=== PATIENT | male | born 1945 | race Caucasian/White ===

== ENCOUNTER 2020-10-16 09:41 | Outpatient (REF) | payer MEDICARE, SELFPAY ==
[2020-10-16 10:23] LABS: MANUAL DIFF FLAG NO
[2020-10-16 10:49] LABS: Basophils Percent Auto 0.5 % (0-2); Eosinophils Absolute Auto 0.1 X10*3/uL (0.0-0.4); Eosinophils Percent Auto 1.7 % (0-4); Hematocrit 27.8 % (42-52); Hemoglobin 9.6 g/dl (14.0-18.0); Imm Gran Abs Auto 0.06 X10*3/uL (0.00-0.03); Imm Gran Pct Auto 0.7 % (0.0-0.4); Lymphocytes Absolute Auto 1.5 X10*3/uL (1.2-4.9); Lymphocytes Percent Auto 18.7 % (20-40); Mean Corpuscular Hemoglobin 32.2 pg (27.0-33.0); Mean Corpuscular Volume 93.3 fL (80-98); Mean Platelet Volume 11.3 fL (9.4-12.4); Monocytes Absolute Auto 0.8 X10*3/uL (0.1-1.2); Neutrophils Absolute Auto 5.6 X10*3/uL (2.0-8.3); Neutrophils Percent Auto 68.4 % (45-73); Platelet Count 180 X10*3/uL (160-400); Red Blood Count 2.98 X10*6/uL (4.60-5.80); Red Cell Distribution Width 13.1 % (11.0-16.0); White Blood Count 8.2 X10*3/uL (4.8-10.8)
[2020-10-16 10:50] LABS: Glucose Urine UA NEG (NEG); Leukocyte Esterase Urine NEG (NEG); Nitrite Urine NEG (NEG); PH 5.5 (5.0-8.0); Specific Gravity - Urine >= 1.030 (1.005-1.025); Urine Blood TRACE (NEG); Urine Ketones NEG (NEG); Urine Protein 2+ MG/DL (NEG-TRACE)
[2020-10-16 10:51] LABS: Mean Corpuscular HGB Conc 34.5 g/dl (31.0-36.0)
[2020-10-16 10:53] LABS: Appearance Urine CLEAR; Color Urine YELLOW
[2020-10-16 11:04] LABS: Bacteria Urine TRACE /LPF; Granular Casts Urine 0-2 /LPF; Squamous Epithelial Cell Urine TRACE /LPF; WBC Urine 0-2 /HPF (0-4)
[2020-10-16 11:26] LABS: Alanine Aminotransferase 7 U/L (0-40); Alkaline Phosphatase 73 U/L (39-117); Anion Gap 14 (12-20); Aspartate Amino Transferase 10 U/L (5-37); Blood Urea Nitrogen 37 mg/dL (9-16); Calcium 8.5 mg/dL (8.4-10.2); Carbon Dioxide 22 mmol/L (22-29); Chloride 107 mmol/L (96-108); Estimated Glomerular Filt Rate 24; Glucose Fasting 151 mg/dL (60-99); Potassium 4.3 mmol/l (3.3-5.1); Sodium 139 mmol/L (135-145); Total Protein 6.7 g/dL (6.5-8.0)
[2020-10-16 11:35] LABS: Creatinine Urine 126.45 mg/dL
[2020-10-16 11:38] LABS: Bilirubin Total 0.3 mg/dL (0.0-1.0)
== END 2020-10-16 09:42 | disposition home or self-care (01) ==
LOC: HO.WFDLDS 09:41
PROVIDERS: PCP Family Medicine; Visit Provider Family Medicine
DX: Z00.00 Encounter for general adult medical examination without abnormal findings (principal); I12.9 Hypertensive chronic kidney disease with stage 1 through stage 4 chronic kidney disease, or unspecified chronic kidney disease; N18.9 Chronic kidney disease, unspecified
CPT/HCPCS: 36415; 80053; 81001; 82043; 85025

== ENCOUNTER 2021-02-09 13:03 | Outpatient (REF) | payer MEDICARE, SELFPAY ==
--- NOTE | ~2021-02-09 | XR_ITS ---
EXAMINATION: XR HAND, LEFT XR HAND, RIGHT CLINICAL INFORMATION: Pain COMPARISON: None TECHNIQUE: 3 views of each hand FINDINGS: Left hand: There is no fracture or dislocation. Alignment is anatomic. Joint spaces are maintained. Prominent cyst formation along the proximal carpal row, particularly in the scaphoid. Soft tissue calcification adjacent to the fourth digit distal interphalangeal joint. No osseous erosions. Small osteophytes of the first carpometacarpal joint. Right hand: No fracture or dislocation. Alignment is anatomic. Mild joint space narrowing at the fifth digit proximal interphalangeal joint. Small osteophytes of the first carpometacarpal joint. Soft tissue calcification at the radial aspect of the wrist. Diffuse soft tissue swelling noted. Osteophytes at the first digit interphalangeal joint with soft tissue calcification. No osseous erosions. XR/XR hand RT 2V IMPRESSION: Mild arthritic changes as detailed above. Areas of soft tissue swelling.
--- NOTE | ~2021-02-09 | XR_ITS ---
EXAMINATION: XR SHOULDER, LEFT XR SHOULDER, RIGHT CLINICAL INFORMATION: Limited mobility. Pain. COMPARISON: None TECHNIQUE: 4 views of each shoulder. FINDINGS: Left shoulder: There is no fracture or dislocation. The glenohumeral joint is well aligned. The joint space is maintained with small osteophytes present. The acromioclavicular joint is intact with mild hypertrophic degenerative change. The visualized lung is clear. The visualized ribs are intact. Right shoulder: No fracture or dislocation. The glenohumeral joint is well aligned. The joint space is maintained with small osteophytes present. The acromioclavicular joint is intact with mild hypertrophic degenerative change. Soft tissue calcification adjacent to the humeral greater tuberosity. The visualized lung is clear. The visualized ribs are intact. XR/XR shoulder LT min 2V IMPRESSION: Mild degenerative changes of both shoulders. Calcification in the soft tissues adjacent to the right humeral greater tuberosity can be seen with calcific tendinosis of the rotator cuff.
--- NOTE | ~2021-02-09 | XR_ITS ---
EXAMINATION: XR CERVICAL SPINE CLINICAL INFORMATION: Pain COMPARISON: None TECHNIQUE: 3 views of the cervical spine were obtained. FINDINGS: No fracture or subluxation. Slight retrolisthesis of C4 on C5 appears degenerative. Vertebral body height and alignment is otherwise maintained. Disc space narrowing at C4-C5 and C5-C6 with endplate osteophytes. The atlantoaxial joint is well aligned. The dens appears intact. The prevertebral soft tissues are unremarkable. The lung apices are clear. XR/XR cervical spine 2V IMPRESSION: Moderate degenerative change of the mid cervical spine.
--- NOTE | ~2021-02-09 | XR_ITS ---
EXAMINATION: XR SHOULDER, LEFT XR SHOULDER, RIGHT CLINICAL INFORMATION: Limited mobility. Pain. COMPARISON: None TECHNIQUE: 4 views of each shoulder. FINDINGS: Left shoulder: There is no fracture or dislocation. The glenohumeral joint is well aligned. The joint space is maintained with small osteophytes present. The acromioclavicular joint is intact with mild hypertrophic degenerative change. The visualized lung is clear. The visualized ribs are intact. Right shoulder: No fracture or dislocation. The glenohumeral joint is well aligned. The joint space is maintained with small osteophytes present. The acromioclavicular joint is intact with mild hypertrophic degenerative change. Soft tissue calcification adjacent to the humeral greater tuberosity. The visualized lung is clear. The visualized ribs are intact. XR/XR shoulder RT min 2V IMPRESSION: Mild degenerative changes of both shoulders. Calcification in the soft tissues adjacent to the right humeral greater tuberosity can be seen with calcific tendinosis of the rotator cuff.
--- NOTE | ~2021-02-09 | XR_ITS ---
EXAMINATION: XR HAND, LEFT XR HAND, RIGHT CLINICAL INFORMATION: Pain COMPARISON: None TECHNIQUE: 3 views of each hand FINDINGS: Left hand: There is no fracture or dislocation. Alignment is anatomic. Joint spaces are maintained. Prominent cyst formation along the proximal carpal row, particularly in the scaphoid. Soft tissue calcification adjacent to the fourth digit distal interphalangeal joint. No osseous erosions. Small osteophytes of the first carpometacarpal joint. Right hand: No fracture or dislocation. Alignment is anatomic. Mild joint space narrowing at the fifth digit proximal interphalangeal joint. Small osteophytes of the first carpometacarpal joint. Soft tissue calcification at the radial aspect of the wrist. Diffuse soft tissue swelling noted. Osteophytes at the first digit interphalangeal joint with soft tissue calcification. No osseous erosions. XR/XR hand LT 2V IMPRESSION: Mild arthritic changes as detailed above. Areas of soft tissue swelling.
[2021-02-09 14:11] LABS: MANUAL DIFF FLAG NO
[2021-02-09 14:36] LABS: Alanine Aminotransferase 12 U/L (0-40); Alkaline Phosphatase 60 U/L (39-117); Anion Gap 14 (12-20); Aspartate Amino Transferase 13 U/L (5-37); Bilirubin Total 0.4 mg/dL (0.0-1.0); Blood Urea Nitrogen 52 mg/dL (9-16); Calcium 8.6 mg/dL (8.4-10.2); Carbon Dioxide 25 mmol/L (22-29); Chloride 106 mmol/L (96-108); Estimated Glomerular Filt Rate 20; Glucose Random 167 mg/dL (60-115); Sodium 140 mmol/L (135-145); Total Protein 6.5 g/dL (6.5-8.0)
[2021-02-09 14:39] LABS: Basophils Percent Auto 0.5 % (0-2); Eosinophils Absolute Auto 0.1 X10*3/uL (0.0-0.4); Hematocrit 26.7 % (42-52); Hemoglobin 8.9 g/dl (14.0-18.0); Imm Gran Abs Auto 0.04 X10*3/uL (0.00-0.03); Imm Gran Pct Auto 0.5 % (0.0-0.4); Lymphocytes Absolute Auto 1.2 X10*3/uL (1.2-4.9); Lymphocytes Percent Auto 14.4 % (20-40); Mean Corpuscular HGB Conc 33.3 g/dl (31.0-36.0); Mean Corpuscular Hemoglobin 31.7 pg (27.0-33.0); Mean Platelet Volume 10.9 fL (9.4-12.4); Monocytes Absolute Auto 0.7 X10*3/uL (0.1-1.2); Monocytes Percent Auto 8.4 % (2-11); Neutrophils Absolute Auto 6.1 X10*3/uL (2.0-8.3); Neutrophils Percent Auto 75.2 % (45-73); Platelet Count 159 X10*3/uL (160-400); Red Blood Count 2.81 X10*6/uL (4.60-5.80); Red Cell Distribution Width 13.6 % (11.0-16.0); White Blood Count 8.1 X10*3/uL (4.8-10.8)
[2021-02-09 14:45] LABS: Rheumatoid Factor < 15.0 IU/mL (<15.0)
[2021-02-09 15:04] LABS: Erythrocyte Sedimentation Rate 66 MM/HR (0-15)
[2021-02-10 15:27] LABS: CRP High Sensitivity 8.6 mg/L
[2021-02-12 13:01] LABS: Anti Nuclear Antibody Screen NEGATIVE (NEGATIVE)
[2021-02-12 16:36] LABS: Cyclic Citrullinated Peptide <16 UNITS
== END 2021-02-09 13:04 | disposition home or self-care (01) ==
LOC: HO.LAB 13:03
PROVIDERS: PCP Family Medicine; Visit Provider Family Medicine
DX: N18.9 Chronic kidney disease, unspecified (principal); D64.9 Anemia, unspecified; M25.50 Pain in unspecified joint
CPT/HCPCS: 36415; 72040; 73030; 73120; 80053; 85025; 85652; 86038; 86039; 86141; 86200; 86431

== ENCOUNTER 2021-03-18 09:37 | Outpatient (REF) | payer MEDICARE, SELFPAY ==
[2021-03-18 11:20] LABS: Anion Gap 13 (12-20); Blood Urea Nitrogen 50 mg/dL (9-16); Carbon Dioxide 23 mmol/L (22-29); Chloride 110 mmol/L (96-108); Estimated Glomerular Filt Rate 23; Glucose Random 80 mg/dL (60-115); Potassium 4.8 mmol/L (3.3-5.1); Sodium 141 mmol/L (135-145)
[2021-03-18 11:43] LABS: Prostate Specific Antigen Scr 0.51 ng/mL (<0.05-4.0)
== END 2021-03-18 09:38 | disposition home or self-care (01) ==
LOC: HO.WFDLDS 09:37
PROVIDERS: Visit Provider Family Medicine
DX: Z00.00 Encounter for general adult medical examination without abnormal findings (principal); Z12.5 Encounter for screening for malignant neoplasm of prostate
CPT/HCPCS: 36415; 80048; 84153

== ENCOUNTER 2021-04-11 07:49 | Outpatient (REF) | payer MEDICARE, SELFPAY ==
--- NOTE | ~2021-04-11 | XR_ITS ---
EXAMINATION: XR CERVICAL SPINE, THORACIC SPINE, LUMBAR SPINE AND BILATERAL HIPS CLINICAL INFORMATION: Pain. COMPARISON: None. TECHNIQUE: Cervical spine 3 views. Dorsal spine 3 views. Lumbar spine 3 views. 2 views each hip. FINDINGS: Cervical Spine: There is mild straightening of the cervical lordosis. There is loss of C3-C4, C4-C5, C5-C6 disc heights with ventral spondylosis at the C4-C5 and C5-C6 disc level. No visible acute fracture or subluxation seen. The prevertebral soft tissues are normal. Dorsal Spine: There is normal thoracic kyphosis. There is mild dextroscoliosis of dorsal spine. The vertebral heights, alignment appears normal. There is minimal loss of disc height T5-T6, T6-T7, T7-T8, T8-T9 and T9-T10 disc levels with mild ventral spondylosis. There is no visible acute fracture, lytic or sclerotic process. The paravertebral soft tissues are normal. Lumbar Spine: There is maintained lumbar lordosis. The vertebral heights and alignment are normal. Loss of L4-L5, L3-L4 and L1-L2 disc heights with moderate ventral spondylosis. No acute fracture or lytic process seen. The paravertebral soft tissues are normal. No lytic or sclerotic process seen. Right Hip: The right hip joint space is maintained normal. There is no visible fracture, dislocation or subluxation. The soft tissues are normal. Left Hip: There is no visible acute fracture, dislocation or subluxation. No bony erosive changes. The joint space is maintained normal. The soft tissues are normal. XR/XR thoracic spine 2V IMPRESSION: Degenerative disc changes C3-C4, C4-C5 and C5-C6 disc levels with ventral spondylosis. No visible acute fracture or dislocation. Mild dextroscoliosis dorsal spine with degenerative disc changes as described above. There is no acute fracture. Mild degenerative disc changes L1-L2, L2-for L4-L5 disc levels with ventral spondylosis. No acute fracture or lytic process seen. Unremarkable bilateral hip exam.
--- NOTE | ~2021-04-11 | XR_ITS ---
EXAMINATION: XR CERVICAL SPINE, THORACIC SPINE, LUMBAR SPINE AND BILATERAL HIPS CLINICAL INFORMATION: Pain. COMPARISON: None. TECHNIQUE: Cervical spine 3 views. Dorsal spine 3 views. Lumbar spine 3 views. 2 views each hip. FINDINGS: Cervical Spine: There is mild straightening of the cervical lordosis. There is loss of C3-C4, C4-C5, C5-C6 disc heights with ventral spondylosis at the C4-C5 and C5-C6 disc level. No visible acute fracture or subluxation seen. The prevertebral soft tissues are normal. Dorsal Spine: There is normal thoracic kyphosis. There is mild dextroscoliosis of dorsal spine. The vertebral heights, alignment appears normal. There is minimal loss of disc height T5-T6, T6-T7, T7-T8, T8-T9 and T9-T10 disc levels with mild ventral spondylosis. There is no visible acute fracture, lytic or sclerotic process. The paravertebral soft tissues are normal. Lumbar Spine: There is maintained lumbar lordosis. The vertebral heights and alignment are normal. Loss of L4-L5, L3-L4 and L1-L2 disc heights with moderate ventral spondylosis. No acute fracture or lytic process seen. The paravertebral soft tissues are normal. No lytic or sclerotic process seen. Right Hip: The right hip joint space is maintained normal. There is no visible fracture, dislocation or subluxation. The soft tissues are normal. Left Hip: There is no visible acute fracture, dislocation or subluxation. No bony erosive changes. The joint space is maintained normal. The soft tissues are normal. XR/XR hip RT 1V IMPRESSION: Degenerative disc changes C3-C4, C4-C5 and C5-C6 disc levels with ventral spondylosis. No visible acute fracture or dislocation. Mild dextroscoliosis dorsal spine with degenerative disc changes as described above. There is no acute fracture. Mild degenerative disc changes L1-L2, L2-for L4-L5 disc levels with ventral spondylosis. No acute fracture or lytic process seen. Unremarkable bilateral hip exam.
--- NOTE | ~2021-04-11 | XR_ITS ---
EXAMINATION: XR CERVICAL SPINE, THORACIC SPINE, LUMBAR SPINE AND BILATERAL HIPS CLINICAL INFORMATION: Pain. COMPARISON: None. TECHNIQUE: Cervical spine 3 views. Dorsal spine 3 views. Lumbar spine 3 views. 2 views each hip. FINDINGS: Cervical Spine: There is mild straightening of the cervical lordosis. There is loss of C3-C4, C4-C5, C5-C6 disc heights with ventral spondylosis at the C4-C5 and C5-C6 disc level. No visible acute fracture or subluxation seen. The prevertebral soft tissues are normal. Dorsal Spine: There is normal thoracic kyphosis. There is mild dextroscoliosis of dorsal spine. The vertebral heights, alignment appears normal. There is minimal loss of disc height T5-T6, T6-T7, T7-T8, T8-T9 and T9-T10 disc levels with mild ventral spondylosis. There is no visible acute fracture, lytic or sclerotic process. The paravertebral soft tissues are normal. Lumbar Spine: There is maintained lumbar lordosis. The vertebral heights and alignment are normal. Loss of L4-L5, L3-L4 and L1-L2 disc heights with moderate ventral spondylosis. No acute fracture or lytic process seen. The paravertebral soft tissues are normal. No lytic or sclerotic process seen. Right Hip: The right hip joint space is maintained normal. There is no visible fracture, dislocation or subluxation. The soft tissues are normal. Left Hip: There is no visible acute fracture, dislocation or subluxation. No bony erosive changes. The joint space is maintained normal. The soft tissues are normal. XR/XR lumbar spine 2-3V IMPRESSION: Degenerative disc changes C3-C4, C4-C5 and C5-C6 disc levels with ventral spondylosis. No visible acute fracture or dislocation. Mild dextroscoliosis dorsal spine with degenerative disc changes as described above. There is no acute fracture. Mild degenerative disc changes L1-L2, L2-for L4-L5 disc levels with ventral spondylosis. No acute fracture or lytic process seen. Unremarkable bilateral hip exam.
== END 2021-04-11 07:50 | disposition home or self-care (01) ==
LOC: HO.XRAY 07:49
PROVIDERS: PCP Family Medicine; Visit Provider Family Medicine
DX: M25.552 Pain in left hip (principal); M25.561 Pain in right knee; M54.2 Cervicalgia; M54.6 Pain in thoracic spine; M54.5 Low back pain
CPT/HCPCS: 72040; 72070; 72100; 73501

== ENCOUNTER 2021-05-12 09:28 | Outpatient (REF) | payer MEDICARE, SELFPAY ==
[2021-05-12 11:32] LABS: MANUAL DIFF FLAG NO
[2021-05-12 11:56] LABS: Anion Gap 14 (12-20); Blood Urea Nitrogen 39 mg/dL (9-16); C Reactive Protein 1.93 mg/dL (< or = 0.50); Calcium 9.1 mg/dL (8.4-10.2); Carbon Dioxide 22 mmol/L (22-29); Chloride 109 mmol/L (96-108); Cholesterol 117 mg/dL; Estimated Glomerular Filt Rate 20; Glucose Random 130 mg/dL (60-115); HDL Cholesterol 26 mg/dL; Iron 58 mcg/dL (45-160); LDL Cholesterol Calculated 64 mg/dl; Percent Iron Saturation 28 % (15-50); Potassium 4.6 mmol/L (3.3-5.1); Sodium 140 mmol/L (135-145); Total Iron Binding Capacity 210 mcg/dL (228-428); Triglycerides 136 mg/dL; Unsaturated Iron Binding 152 ug/dL
[2021-05-12 12:07] LABS: Glucose Urine UA NEG (NEG); Leukocyte Esterase Urine NEG (NEG); Nitrite Urine NEG (NEG); PH 5.5 (5.0-8.0); Specific Gravity - Urine 1.025 (1.005-1.025); Urine Blood NEG (NEG); Urine Ketones NEG (NEG); Urine Protein 2+ MG/DL (NEG-TRACE)
[2021-05-12 12:10] LABS: Appearance Urine CLEAR; Color Urine YELLOW
[2021-05-12 12:26] LABS: Basophils Percent Auto 0.4 % (0-2); Eosinophils Absolute Auto 0.1 X10*3/uL (0.0-0.4); Eosinophils Percent Auto 1.3 % (0-4); Hematocrit 26.5 % (42-52); Hemoglobin 8.6 g/dl (14.0-18.0); Imm Gran Abs Auto 0.04 X10*3/uL (0.00-0.03); Imm Gran Pct Auto 0.5 % (0.0-0.4); Immature Retic Fraction 7.9 % (2.3-13.4); Lymphocytes Absolute Auto 1.1 X10*3/uL (1.2-4.9); Lymphocytes Percent Auto 13.9 % (20-40); Mean Corpuscular HGB Conc 32.5 g/dl (31.0-36.0); Mean Corpuscular Hemoglobin 30.9 pg (27.0-33.0); Mean Corpuscular Volume 95.3 fL (80-98); Mean Platelet Volume 10.9 fL (9.4-12.4); Monocytes Absolute Auto 0.7 X10*3/uL (0.1-1.2); Monocytes Percent Auto 9.8 % (2-11); Neutrophils Absolute Auto 5.6 X10*3/uL (2.0-8.3); Neutrophils Percent Auto 74.1 % (45-73); Platelet Count 169 X10*3/uL (160-400); Red Blood Count 2.78 X10*6/uL (4.60-5.80); Red Cell Distribution Width 12.9 % (11.0-16.0); Retic HGB Equivalent 33.7 pg (30.0-35.0); Reticulocyte Percent 1.5 % (0.5-1.8); Reticulocytes Absolute 0.042 X10*6/uL (0.026-0.095); White Blood Count 7.5 X10*3/uL (4.8-10.8)
[2021-05-12 12:41] LABS: Folate 9.7 ng/mL (> or = 4.0); Vitamin B12 400 pg/mL (200-900)
[2021-05-12 12:49] LABS: Ferritin 224 ng/mL (20-250)
[2021-05-12 13:05] LABS: Bacteria Urine 1+ /LPF; RBC Urine 0-2 /HPF (0); Squamous Epithelial Cell Urine TRACE /LPF; WBC Urine 0-2 /HPF (0-4)
[2021-05-12 13:10] LABS: Erythrocyte Sedimentation Rate 75 MM/HR (0-15)
[2021-05-13 17:01] LABS: Lyme Abs Screen <0.90 index
[2021-05-15 08:47] LABS: PEU-Protein Creat Ratio Rand 0.647 (0.022-0.128); PEU-Rand. Prot/Creat Ratio 647 mg/g creat (22-128); PEU-Random Ur. Gamma Globulin 10 %; PEU-Random Urine A1 Globulin 1 %; PEU-Random Urine A2 Globulin 3 %; PEU-Random Urine Albumin 81 %; PEU-Random Urine Beta Globulin 6 %; PEU-Random Urine Creatinine 156 mg/dL (20-320); PEU-Random Urine Protein 101 mg/dL (5-25)
[2021-05-15 14:27] LABS: Prot Elec - Albumin 3.9 g/dL (3.8-4.8); Prot Elec - Alpha1 0.4 g/dL (0.2-0.3); Prot Elec - Alpha2 0.6 g/dL (0.5-0.9); Prot Elec - Beta 1 0.4 g/dL (0.4-0.6); Prot Elec - Beta 2 0.3 g/dL (0.2-0.5); Prot Elec - Gamma 0.8 g/dL (0.8-1.7); Prot Elec - Total Protein 6.3 g/dL (6.1-8.1)
[2021-05-15 15:17] LABS: IgA 171 mg/dL (70-320); IgG 768 mg/dL (600-1540); IgM 331 mg/dL (50-300)
[2021-05-16 09:54] LABS: PES-Abn Protein Band 2 TNPT
== END 2021-05-12 09:29 | disposition home or self-care (01) ==
LOC: HO.LAB 09:28
PROVIDERS: PCP Family Medicine; Visit Provider Student in an Organized Health Care Education/Training Program
DX: M35.3 Polymyalgia rheumatica (principal); R79.82 Elevated C-reactive protein (CRP); R70.0 Elevated erythrocyte sedimentation rate; Z00.00 Encounter for general adult medical examination without abnormal findings; N18.9 Chronic kidney disease, unspecified; D64.9 Anemia, unspecified; Z86.39 Personal history of other endocrine, nutritional and metabolic disease
CPT/HCPCS: 36415; 80048; 80061; 81001; 81003; 82570; 82607; 82728; 82746; 82784; 83540; 84155; 84156; 84165; 84166; 85025; 85045; 85652; 86140; 86334; 86335; 86617; 86618; 99202

== ENCOUNTER 2021-06-02 12:45 | Outpatient (REF) | payer MEDICARE, SELFPAY ==
[2021-06-02 14:06] LABS: Glucose Urine UA NEG (NEG); Leukocyte Esterase Urine NEG (NEG); Nitrite Urine NEG (NEG); Urine Blood NEG (NEG); Urine Ketones NEG (NEG); Urine Protein 2+ MG/DL (NEG-TRACE)
[2021-06-02 14:11] LABS: Appearance Urine CLEAR; Color Urine YELLOW
[2021-06-02 14:22] LABS: C Reactive Protein 0.18 mg/dL (< or = 0.50)
[2021-06-02 14:32] LABS: RBC Urine 0 /HPF (0); Squamous Epithelial Cell Urine TRACE /LPF; WBC Urine 0-2 /HPF (0-4)
[2021-06-02 15:13] LABS: Erythrocyte Sedimentation Rate 36 MM/HR (0-15)
== END 2021-06-02 12:46 | disposition home or self-care (01) ==
LOC: HO.LAB 12:45
PROVIDERS: PCP Family Medicine; Visit Provider Student in an Organized Health Care Education/Training Program
DX: M35.3 Polymyalgia rheumatica (principal); Z79.52 Long term (current) use of systemic steroids
CPT/HCPCS: 36415; 81001; 81003; 85652; 86140; 99212

== ENCOUNTER → 2021-07-16 08:44 | Outpatient (BNVA) | payer MEDICARE, SELFPAY | PROVIDERS: PCP Family Medicine; Visit Provider Student in an Organized Health Care Education/Training Program | CPT/HCPCS: Q3014 ==

== ENCOUNTER 2021-08-06 08:14 | Outpatient (REF) | payer MEDICARE, SELFPAY ==
--- NOTE | ~2021-08-06 | MM_ITS ---
EXAMINATION: BONE DENSITOMETRY CLINICAL INDICATION: Polymyalgia rheumatica. COMPARISON: None (current study represents initial baseline exam). TECHNIQUE: Using a [employer] DXA System (software version: 13.1) manufactured by [employer], dual-energy x-ray absorptiometry was performed of the lumbar spine and left hip. The images are of good technical quality. Summary results are attached. FINDINGS: AP SPINE L1-L4: There are degenerative changes in the lumbar spine which may cause overestimation of the lumbar bone mineral density. BMD 1.306 g/cm2, Z-score 1.1, T-score 0.7, normal. LEFT FEMUR, NECK: BMD 0.800 g/cm2, Z-score -0.9, T-score -2.1, osteopenia. LEFT FEMUR, TOTAL: BMD 0.894 g/cm2, Z-score -0.7, T-score -1.4, osteopenia. IDENTIFIED RISK FACTORS: Glucocorticoids (chronic), tobacco use (current smoker). HISTORY OF FRACTURE: None listed. MEDICATIONS: Vitamin D. MM/XR DEXA axial skeleton IMPRESSION: 1. DIAGNOSIS: Osteopenia based on the lowest T-score value of -2.1 in the femoral neck applying World Health Organization criteria. 2. 10-YEAR FRACTURE RISK PREDICTION, FRAX: Major osteoporotic fracture (clinical spine, forearm, hip or shoulder) 13.1%. Hip fracture 6.9%. 3. Treatment Recommendations: NOF guidelines recommend consideration for treatment in postmenopausal women and men age 50 and older presenting with the following: -A hip or vertebral (clinical or morphometric) fracture. -T-score less than or equal to -2.5 at the femoral neck or spine after appropriate evaluation to exclude secondary causes. -Low bone mass at the hip or spine and a 10-year fracture probability by FRAX of greater than or equal to 3% for hip fracture or greater than or equal to 20% for major osteoporotic fracture based on the [place] adapted WHO algorithm. 4. Other Recommendations: All treatment decisions require clinical judgment and consideration of individual patient factors, including patient preferences, comorbidities, previous drug use, risk factors not captured in the FRAX model (e.g. frailty, falls, vitamin D deficiency, increased bone turnover, interval significant decline in bone density) and possible under or overestimation of fracture risk by FRAX. Additional medical evaluation for secondary cause of low bone mineral density may be appropriate. FUTURE SCAN RECOMMENDATION: People with diagnosed cases of osteoporosis or at high risk for fracture should have regular bone mineral density tests. For patients eligible for Medicare, routine testing is allowed once every 2 years. The testing frequency can be increased to one year for patients who have rapidly progressing disease, those who are receiving or discontinuing medical therapy to restore bone mass, or have additional risk factors.
== END 2021-08-06 08:15 | disposition home or self-care (01) ==
LOC: HO.MAMMO 08:14
PROVIDERS: Visit Provider Student in an Organized Health Care Education/Training Program
DX: Z13.820 Encounter for screening for osteoporosis (principal); M35.3 Polymyalgia rheumatica; F17.200 Nicotine dependence, unspecified, uncomplicated; Z79.52 Long term (current) use of systemic steroids; Z79.899 Other long term (current) drug therapy
CPT/HCPCS: 77080

== ENCOUNTER 2021-10-08 11:02 | Outpatient (REF) | payer MEDICARE, SELFPAY ==
[2021-10-08 14:10] LABS: Appearance Urine CLEAR; Color Urine YELLOW; Glucose Urine UA NEG (NEG); Leukocyte Esterase Urine NEG (NEG); Nitrite Urine NEG (NEG); PH 5.5 (5.0-8.0); Specific Gravity - Urine >= 1.030 (1.005-1.025); Urine Blood NEG (NEG); Urine Ketones NEG (NEG); Urine Protein 2+ MG/DL (NEG-TRACE)
[2021-10-08 14:14] LABS: Alanine Aminotransferase 8 U/L (0-40); Albumin Level 3.8 g/dL (3.5-5.0); Alkaline Phosphatase 55 U/L (39-117); Anion Gap 13 (12-20); Aspartate Amino Transferase 9 U/L (5-37); Bilirubin Total 0.4 mg/dL (0.0-1.0); Blood Urea Nitrogen 54 mg/dL (9-16); Calcium 8.9 mg/dL (8.4-10.2); Carbon Dioxide 24 mmol/L (22-29); Chloride 109 mmol/L (96-108); Cholesterol 140 mg/dL; Estimated Glomerular Filt Rate 19; Glucose Random 100 mg/dL (60-115); HDL Cholesterol 22 mg/dL; LDL Cholesterol Calculated 81 mg/dl; Potassium 4.4 mmol/L (3.3-5.1); Sodium 142 mmol/L (135-145); Triglycerides 186 mg/dL
[2021-10-08 14:31] LABS: Amorphous Sediment Urine 1+ /LPF; Mucus Urine 1+ /LPF; RBC Urine 0 /HPF (0); Squamous Epithelial Cell Urine 1+ /LPF; WBC Urine 0-2 /HPF (0-4)
[2021-10-08 14:33] LABS: TSH reflex Free T4 1.64 uIU/mL (0.32-4.0)
[2021-10-08 14:34] LABS: Creatinine Urine 237.87 mg/dL
[2021-10-08 15:00] LABS: Microalbum/Creatinine Ratio Ur 580.1 ug/mg cr
[2021-10-09 11:47] LABS: C Reactive Protein 0.27 mg/dL (< or = 0.50)
== END 2021-10-08 11:03 | disposition home or self-care (01) ==
LOC: HO.WFDLDS 11:02
PROVIDERS: Nurse Practitioner Family; Visit Provider Family Medicine
DX: Z00.00 Encounter for general adult medical examination without abnormal findings (principal); E11.9 Type 2 diabetes mellitus without complications; I10 Essential (primary) hypertension; M35.3 Polymyalgia rheumatica
CPT/HCPCS: 36415; 80053; 80061; 81001; 81003; 82043; 84443; 86140

== ENCOUNTER 2021-10-09 10:38 | Outpatient (REF) | payer MEDICARE, SELFPAY ==
--- NOTE | ~2021-10-09 | US_ITS ---
EXAMINATION: US VENOUS ULTRASOUND WITH DOPPLER LOWER EXTREMITY, LEFT CLINICAL INFORMATION: Left leg swelling COMPARISON: Previous exam July 2015 TECHNIQUE: Ultrasound of the deep veins is performed from the hip to the calf with compression sonography and color and pulse Doppler assessment. Spectral analysis with color-flow imaging is performed. FINDINGS: There is an acute-appearingthrombus seen in the popliteal vein and posterior tibial and peroneal veins. The left common femoral, superficial femoral and profunda femoral veins are patent. There is no Orlando's cyst. US/US venous duplex LE IMPRESSION: Left popliteal vein and calf DVT. Findings were communicated to Josefina Knowles by telephone by the tissue technologist at the completion of the exam on 11/05/2021 at 12:20 PM and the patient was sent to the emergency room.
== END 2021-10-09 10:39 | disposition home or self-care (01) ==
LOC: HO.US 10:38
PROVIDERS: PCP Family Medicine; Visit Provider Nurse Practitioner Family
DX: M35.3 Polymyalgia rheumatica (principal); M54.50 Low back pain, unspecified; M79.89 Other specified soft tissue disorders; N18.9 Chronic kidney disease, unspecified; I10 Essential (primary) hypertension; F17.210 Nicotine dependence, cigarettes, uncomplicated; Z79.84 Long term (current) use of oral hypoglycemic drugs; Z79.52 Long term (current) use of systemic steroids; Z79.899 Other long term (current) drug therapy
CPT/HCPCS: 93971; 99212

== ENCOUNTER 2021-10-09 12:29 | Emergency (ER) | payer MEDICARE, SELFPAY ==
[2021-10-09 13:51] VITALS: BP 151/55; PULSE 83; RESP 20; TEMP 36.8; O2SAT 96; BMI 26.1
--- NOTE | 2021-10-09 14:53 | ED_ITS ---
HPI - General Adult General Chief complaint: General Medical Stated complaint: Blood clot in L leg Time Seen by Provider: 10/09/21 14:28 Source: patient and old records reviewed Mode of arrival: ambulatory Limitations: no limitations History of Present Illness HPI narrative: 76-year-old male with a history of polymyalgia rheumatica with seeing his interpersonal communications professor today, and complaining of left calf pain. Rheumatol ogist ordered an ultrasound. Ultrasound shows DVT in left popliteal vein. Patient endorses 3 months of left calf pain. No chest pain, no shortness of breath. Patient is not currently anticoagulated. Patient has had no immobilizations, surgeries, no history of cancer, no long car trips or plane trips. No past history of blood clots. Patient does endorse chronic bilateral calf edema Related Data Home Medications Medication Instructions Recorded Confirmed flu vacc (65yr IM 10/16/20 10/09/21 up)-MF59C(PF) 60 mcg(15 mcgx4)/0.5 mL IM syringe acetaminophen 650 mg 1,300 mg PO Q12H PRN 05/12/21 10/09/21 tablet,extended release (Tylenol Arthritis Pain) glipizide 5 mg tablet, extended 5 mg PO DAILY tab 10/09/21 10/09/21 release 24 hr Previous Rx's Medication Instructions Recorded prednisone 5 mg tablet 5 mg PO DAILY #90 tab 07/16/21 apixaban 5 mg (74 tabs) tablets in 5 mg PO BID #74 ea 10/09/21 a dose pack Allergies Allergy/AdvReac Type Severity Reaction Status Date / Time No Known Allergies Allergy Verified 10/09/21 11:00 [No Known Allergies*] Review of Systems Constitutional: Constitutional: Denies body ache(s), Denies chills, Denies fatigue, Denies fever(s), Denies headache(s), Denies malaise and Denies weakness Eyes: Eyes: Denies diplopia ENT: Denies vertigo, Denies dizziness, Denies otalgia, Denies headache(s), D enies mouth pain, Denies post nasal drip, Denies sinus pain, Denies sinus pressure, Denies sore throat and Denies throat swelling Cardiovascular: Cardiovascular: Denies chest pain, Denies syncope, Denies leg edema, Denies lightheadedness, Denies Loss of Consciousness, Denies palpitations and Denies dyspnea Respiratory: Respiratory: Denies chest congestion, Denies cough and Denies dyspnea Gastrointestinal: Gastrointestinal: Denies abdominal pain, Denies hematochezia, Denies constipation, Denies diarrhea and Denies vomiting Musculoskeletal: Comments: Left calf pain and swelling Neurologic: Denies confusion, Denies vertigo, Denies dizziness, Denies syncope, Denies headache(s) and Denies weakness Psychiatric: Psychiatric: Denies anxiety, Denies confusion and Denies depres evangelina Endocrine: Endocrine: Denies fatigue and Denies palpitations Allergic/Immunologic: Allergic/Immunologic: Denies throat swelling [facility] Past Medical History Medical History HTN (hypertension) Social History Social History [facility] Alcohol intake: never Patient Tobacco Use Status: Current everyday Tobacco user Tobacco use type: Cigarette Cigarettes Per Day: 12 Years Smoked: 54 Advance Directives: No Advance Directives Information Provided: Yes Current occupational status: employed Physical Exam Vital Signs: Vital Signs: Last Vital Signs Temp 98.2 F 10/09/21 13:51 Pulse 83 10/09/21 13:51 Resp 20 10/09/21 13:51 BP 151/55 H 10/09/21 13:51 Pulse Ox 96 10/09/21 13:51 BMI result Body Mass Index 26.1 Const: General: no acute distress, alert, awake and ill appearing chronically; No confusion Nutritional Appearance: obese Orientation/consciousness: patient oriented x3 and No confusion Limitations: no limitations HENMT: Head: Yes normal to inspection, Yes normocephalic and Yes atraumatic Ears: hearing grossly normal bilaterally, external ears normal, TM's normal bilaterally and EAC's normal General nose exam: Normal external nose present Face and sinus: Yes normal facial exam and Yes sinuses nontender Mouth: Normal oral and palatal mucosa present Throat: Yes posterior oropharynx normal Eyes: Conjunctivae: conjunctivae normal Pupils: Equal, round and reactive pupils present EOM: EOMs intact bilaterally Neck: Neck: Yes full ROM, Yes no lymphadenopathy and Yes supple Resp: Effort & Inspection: normal respiratory effort and able to speak in complete sentences Auscultation: clear to auscultation bilaterally, no crackles, no rales, no rhonchi and no wheezes Cardio: Rate: regular rate Rhythm: regular rhythm Heart sounds: S1 normal heart sound present and S2 normal heart sound present GI: Inspection: Yes normal to inspection Palpation (GI): Soft to palpation, nontender, no guarding and not rigid Percussion: Yes normal to percussion Auscultation: normal bowel sounds Skin: Other: Skin darkening around hands, bilateral lower extremity edema Neuro: General: patient oriented x3 and No confusion Cranial nerves: Yes Equal, round and reactive pupils present Extrem: Left lower extremity: normal capillary refill and lower leg Details: non-pitting edema Details: 2+; Negative for no erythema, no tenderness, no local ized swelling, no palpable cords and no unusual warmth Psych: Appearance: grossly normal Affect: normal affect Attitude: cooperative Thought process: Normal thought process present Course Course Course Narrative: 76-year-old male with a past medical history of polymyalgia rheumatica, anemia, chronic renal failure, and diabetes presents from interpersonal communications professor's office for positive ultrasound for DVT and left calf. Patient endorses left leg pain for 3 months. Blood clot is unprovoked. US: FINDINGS: There is an acute-appearingthrombus seen in the popliteal vein and posterior tibial and peroneal veins. The left common femoral, superficial femoral and profunda femoral veins are patent. There is no Orlando's cyst. US/US venous duplex LE LT IMPRESSION: Left popliteal vein and calf DVT. Patient's H&H is 9.5 and 27, which is his baseline. Patient has thr ombocytopenia with platelets of 153, which is his baseline. INR 1.0. Patient's creatinine 3.23, patient's baseline is approximately this. at bedside states they have an appointment October 23 with PCP. Will start patient on Eliquis. Counseled for return of chest pain, shortness of breath, any other new or concerning symptoms. All questions answered to their satisfaction. Medical Decision Making Lab Data Result diagrams: 10/09/21 15:09 10/09/21 15:09 Labs: Lab Results 10/09/21 10/09/21 10/09/21 Range/Units 15:09 15:09 15:09 WBC 8.5 (4.8-10.8) X10*3/uL RBC 2.75 L (4.60-5.80) X10*6/uL Hgb 9.5 L (14.0-18.0) g/dl Hct 27.0 L (42.0-52.0) % MCV 98.2 H (80.0-98.0) fL MCH 34.5 H (27.0-33.0) pg MCHC 35.2 (31.0-36.0) g/dl RDW 13.9 (11.0-16.0) % Plt Count 153 L (160-400) X10*3/uL MPV 9.9 (9.4-12.4) fL Immature Gran % (Auto) 1.8 H (0.0-0.4) % Neut % (Auto) 69.6 (45-73) % Lymph % (Auto) 19.2 L (20-40) % Wheeler % (Auto) 8.4 (2-11) % Eos % (Auto) 0.6 (0-4) % Baso % (Auto) 0.4 (0-2) % Lymph # (Auto) 1.6 (1.2-4.9) X10*3/uL Wheeler # (Auto) 0.7 (0.1-1.2) X10*3/uL Eos # (Auto) 0.1 (0.0-0.4) X10*3/uL Baso # (Auto) 0.0 (0.0-0.2) X10*3/uL Abs Immat Gran (auto) 0.15 H (0.00-0.03) X10*3/uL Absolute Neuts (auto) 5.9 (2.0-8.3) x10*3/uL Absolute Nucleated RBC 0.000 (0.0-0.012) X10*3/uL Nucleated RBC % (auto) 0.0 (0.0-0.2) /100WBC PT 11.7 (9.9-13.0) SEC INR 1.0 (0.9-1.1) PT Mixing Study PT Normal Plasma Immed PTT Mixing Study PTT Normal Plasma Immed PTT Normal Plasma Post Mixing Interpretation Sodium 143 (135-145) mmol/L Potassium 4.8 (3.3-5.1) mmol/L Chloride 110 H (96-108) mmol/L Carbon Dioxide 24 (22-29) mmol/L Anion Gap 14 (12-20) BUN 56 H (9-16) mg/dL Creatinine 3.43 H (0.5-1.4) mg/dL Estim Creat Clear Calc 19.2 Estimated GFR 18 Random Glucose 90 (60-115) mg/dL Calcium 9.0 (8.4-10.2) mg/dL Total Bilirubin 0.4 (0.0-1.0) mg/dL AST 11 (5-37) U/L ALT 9 (0-40) U/L Alkaline Phosphatase 55 (39-117) U/L Total Protein 6.2 L (6.5-8.0) g/dL Albumin 3.9 (3.5-5.0) g/dL 10/09/21 Range/Units 15:09 WBC (4.8-10.8) X10*3/uL RBC (4.60-5.80) X10*6/uL Hgb (14.0-18.0) g/dl Hct (42.0-52.0) % MCV (80.0-98.0) fL MCH (27.0-33.0) pg MCHC (31.0-36.0) g/dl RDW (11.0-16.0) % Plt Count (160-400) X10*3/uL MPV (9.4-12.4) fL Immature Gran % (Auto) (0.0-0.4) % Neut % (Auto) (45-73) % Lymph % (Auto) (20-40) % Wheeler % (Auto) (2-11) % Eos % (Auto) (0-4) % Baso % (Auto) (0-2) % Lymph # (Auto) (1.2-4.9) X10*3/uL Wheeler # (Auto) (0.1-1.2) X10*3/uL Eos # (Auto) (0.0-0.4) X10*3/uL Baso # (Auto) (0.0-0.2) X10*3/uL Abs Immat Gran (auto) (0.00-0.03) X10*3/uL Absolute Neuts (auto) (2.0-8.3) x10*3/uL Absolute Nucleated RBC (0.0-0.012) X10*3/uL Nucleated RBC % (auto) (0.0-0.2) /100WBC PT (9.9-13.0) SEC INR (0.9-1.1) PT Mixing Study Cancelled PT Normal Plasma Immed Cancelled PTT Mixing Study Cancelled PTT Normal Plasma Immed Cancelled PTT Normal Plasma Post Cancelled Mixing Interpretation Cancelled Sodium (135-145) mmol/L Potassium (3.3-5.1) mmol/L Chloride (96-108) mmol/L Carbon Dioxide (22-29) mmol/L Anion Gap (12-20) BUN (9-16) mg/dL Creatinine (0.5-1.4) mg/dL Estim Creat Clear Calc Estimated GFR Random Glucose (60-115) mg/dL Calcium (8.4-10.2) mg/dL Total Bilirubin (0.0-1.0) mg/dL AST (5-37) U/L ALT (0-40) U/L Alkaline Phosphatase (39-117) U/L Total Protein (6.5-8.0) g/dL Albumin (3.5-5.0) g/dL Discharge Plan Discharge Clinical Impression: Acute deep vein thrombosis (DVT) of popliteal vein of left lower extremity Patient Disposition: Home, Self-Care Instructions: Apixaban (By mouth), Deep Vein Thrombosis (ED) Additional Instructions: Please fill your prescription for Eliquis and take it as prescribed. Please return to emergency room if you have chest pain or shortness of breath. Please keep your appointment with your primary care provider for October 23. Prescriptions: New apixaban 5 mg (74 tabs) tablets,dose pack 5 mg PO BID Qty: 74 RF: 0 No Action Fluad Quad 2019-(65y up)(PF) 60 mcg (15 mcg x 4)/0.5 mL syringe IM RF: 0 acetaminophen [Tylenol Arthritis Pain] 650 mg tablet extended release 1,300 mg PO Q12H PRNRF: 0 prednisone 5 mg tablet 5 mg PO DAILY Qty: 90 RF: 1 glipizide 5 mg tablet extended release 24hr 5 mg PO DAILY RF: 0 Stand Alone Forms: Work/School Release Interventions: ED Discharge Assessment Last Done: 10/09/21 16:21 Discharge Date/Time: 10/09/21 16:22
[2021-10-09 15:13] LABS: MANUAL DIFF FLAG NO
[2021-10-09 15:19] LABS: Basophils Percent Auto 0.4 % (0-2); Eosinophils Absolute Auto 0.1 X10*3/uL (0.0-0.4); Eosinophils Percent Auto 0.6 % (0-4); Hemoglobin 9.5 g/dl (14.0-18.0); Imm Gran Abs Auto 0.15 X10*3/uL (0.00-0.03); Imm Gran Pct Auto 1.8 % (0.0-0.4); Lymphocytes Absolute Auto 1.6 X10*3/uL (1.2-4.9); Lymphocytes Percent Auto 19.2 % (20-40); Mean Corpuscular HGB Conc 35.2 g/dl (31.0-36.0); Mean Corpuscular Hemoglobin 34.5 pg (27.0-33.0); Mean Corpuscular Volume 98.2 fL (80.0-98.0); Mean Platelet Volume 9.9 fL (9.4-12.4); Monocytes Absolute Auto 0.7 X10*3/uL (0.1-1.2); Monocytes Percent Auto 8.4 % (2-11); Neutrophils Absolute Auto 5.9 x10*3/uL (2.0-8.3); Neutrophils Percent Auto 69.6 % (45-73); Platelet Count 153 X10*3/uL (160-400); Red Blood Count 2.75 X10*6/uL (4.60-5.80); Red Cell Distribution Width 13.9 % (11.0-16.0); White Blood Count 8.5 X10*3/uL (4.8-10.8)
[2021-10-09 15:28] LABS: Prothrombin Time 11.7 SEC (9.9-13.0)
[2021-10-09 15:30] LABS: Alanine Aminotransferase 9 U/L (0-40); Albumin Level 3.9 g/dL (3.5-5.0); Alkaline Phosphatase 55 U/L (39-117); Anion Gap 14 (12-20); Aspartate Amino Transferase 11 U/L (5-37); Bilirubin Total 0.4 mg/dL (0.0-1.0); Blood Urea Nitrogen 56 mg/dL (9-16); Carbon Dioxide 24 mmol/L (22-29); Chloride 110 mmol/L (96-108); Creatinine Clr Calc Pharmacy 19.2; Estimated Glomerular Filt Rate 18; Glucose Random 90 mg/dL (60-115); Potassium 4.8 mmol/L (3.3-5.1); Sodium 143 mmol/L (135-145); Total Protein 6.2 g/dL (6.5-8.0)
== END 2021-10-09 16:22 | disposition home or self-care (01) ==
PROVIDERS: Emergency Provider Emergency Medicine; PCP Family Medicine
DX: I82.432 Acute embolism and thrombosis of left popliteal vein (principal); I10 Essential (primary) hypertension; M35.3 Polymyalgia rheumatica
CPT/HCPCS: 36415; 80053; 85025; 85610; 85611; 85732; 99283

== ENCOUNTER 2021-10-12 10:37 | Outpatient (REF) | payer MEDICARE, SELFPAY ==
[2021-10-12 14:21] LABS: INTERNATIONAL NORM RATIO 1.2 (0.9-1.1); Prothrombin Time 13.7 SEC (9.9-13.0)
== END 2021-10-12 10:38 | disposition home or self-care (01) ==
LOC: HO.WFDLDS 10:37
PROVIDERS: Visit Provider Internal Medicine
DX: I82.402 Acute embolism and thrombosis of unspecified deep veins of left lower extremity (principal); Z79.01 Long term (current) use of anticoagulants
CPT/HCPCS: 36415; 85610

== ENCOUNTER 2021-10-14 09:34 | Outpatient (REF) | payer MEDICARE, SELFPAY ==
[2021-10-14 10:36] LABS: Appearance Urine CLEAR; Color Urine YELLOW; Glucose Urine UA NEG (NEG); Leukocyte Esterase Urine NEG (NEG); Nitrite Urine NEG (NEG); PH 5.5 (5.0-8.0); Specific Gravity - Urine >= 1.030 (1.005-1.025); Urine Blood NEG (NEG); Urine Ketones NEG (NEG); Urine Protein 2+ MG/DL (NEG-TRACE)
[2021-10-14 10:38] LABS: INTERNATIONAL NORM RATIO 2.5 (0.9-1.1); Prothrombin Time 29.1 SEC (9.9-13.0)
[2021-10-14 11:01] LABS: Anion Gap 16 (12-20); Blood Urea Nitrogen 62 mg/dL (9-16); Calcium 9.2 mg/dL (8.4-10.2); Carbon Dioxide 23 mmol/L (22-29); Chloride 107 mmol/L (96-108); Estimated Glomerular Filt Rate 18; Glucose Random 81 mg/dL (60-115); Sodium 142 mmol/L (135-145)
[2021-10-14 11:03] LABS: RBC Urine 0 /HPF (0); WBC Urine 0 /HPF (0-4)
[2021-10-14 11:04] LABS: Amorphous Sediment Urine 2+ /LPF; Squamous Epithelial Cell Urine TRACE /LPF
== END 2021-10-14 09:35 | disposition home or self-care (01) ==
LOC: HO.WFDLDS 09:34
PROVIDERS: Visit Provider Family Medicine
DX: Z00.00 Encounter for general adult medical examination without abnormal findings (principal); I82.402 Acute embolism and thrombosis of unspecified deep veins of left lower extremity; N18.9 Chronic kidney disease, unspecified
CPT/HCPCS: 36415; 80048; 81001; 85610

== ENCOUNTER 2021-10-16 09:27 | Outpatient (REF) | payer MEDICARE, SELFPAY ==
[2021-10-16 12:25] LABS: INTERNATIONAL NORM RATIO 2.6 (0.9-1.1); Prothrombin Time 29.7 SEC (9.9-13.0)
== END 2021-10-16 09:28 | disposition home or self-care (01) ==
LOC: HO.WFDLDS 09:27
PROVIDERS: Visit Provider Family Medicine
DX: I82.402 Acute embolism and thrombosis of unspecified deep veins of left lower extremity (principal)
CPT/HCPCS: 36415; 85610

== ENCOUNTER 2021-10-19 09:55 | Outpatient (REF) | payer MEDICARE, SELFPAY ==
[2021-10-19 13:15] LABS: INTERNATIONAL NORM RATIO 3.3 (0.9-1.1); Prothrombin Time 38.5 SEC (9.9-13.0)
== END 2021-10-19 09:56 | disposition home or self-care (01) ==
LOC: HO.WFDLDS 09:55
PROVIDERS: Visit Provider Family Medicine
DX: I82.402 Acute embolism and thrombosis of unspecified deep veins of left lower extremity (principal)
CPT/HCPCS: 36415; 85610

== ENCOUNTER 2021-10-21 09:38 | Outpatient (REF) | payer MEDICARE, SELFPAY ==
[2021-10-21 11:56] LABS: INTERNATIONAL NORM RATIO 3.3 (0.9-1.1); Prothrombin Time 37.9 SEC (9.9-13.0)
== END 2021-10-21 09:39 | disposition home or self-care (01) ==
LOC: HO.WFDLDS 09:38
PROVIDERS: Visit Provider Family Medicine
DX: I82.402 Acute embolism and thrombosis of unspecified deep veins of left lower extremity (principal)
CPT/HCPCS: 36415; 85610

== ENCOUNTER 2021-10-23 08:54 | Outpatient (REF) | payer MEDICARE, SELFPAY ==
[2021-10-23 11:38] LABS: INTERNATIONAL NORM RATIO 3.4 (0.9-1.1); Prothrombin Time 39.1 SEC (9.9-13.0)
== END 2021-10-23 08:55 | disposition home or self-care (01) ==
LOC: HO.WFDLDS 08:54
PROVIDERS: Visit Provider Family Medicine
DX: I82.402 Acute embolism and thrombosis of unspecified deep veins of left lower extremity (principal)
CPT/HCPCS: 36415; 85610

== ENCOUNTER 2021-10-27 08:23 | Outpatient (REF) | payer MEDICARE, SELFPAY ==
[2021-10-27 11:40] LABS: INTERNATIONAL NORM RATIO 2.2 (0.9-1.1)
[2021-10-27 11:48] LABS: Estimated Average Glucose 123 mg/dL; Hemoglobin A1c % 5.9 %
== END 2021-10-27 08:24 | disposition home or self-care (01) ==
LOC: HO.WFDLDS 08:23
PROVIDERS: Visit Provider Family Medicine
DX: I82.402 Acute embolism and thrombosis of unspecified deep veins of left lower extremity (principal); R73.01 Impaired fasting glucose
CPT/HCPCS: 36415; 83036; 85610

== ENCOUNTER 2021-11-03 08:32 | Outpatient (REF) | payer MEDICARE, SELFPAY ==
[2021-11-03 11:14] LABS: Appearance Urine CLEAR; Color Urine YELLOW; Glucose Urine UA NEG (NEG)
[2021-11-03 11:15] LABS: Leukocyte Esterase Urine NEG (NEG); Nitrite Urine NEG (NEG); Specific Gravity - Urine >= 1.030 (1.005-1.025); Urine Blood TRACE (NEG); Urine Ketones NEG (NEG); Urine Protein 2+ MG/DL (NEG-TRACE)
[2021-11-03 11:28] LABS: Mucus Urine 1+ /LPF; RBC Urine 0-2 /HPF (0); Squamous Epithelial Cell Urine 1+ /LPF; WBC Urine 0-2 /HPF (0-4)
[2021-11-03 11:55] LABS: C Reactive Protein 0.55 mg/dL (< or = 0.50)
[2021-11-03 12:12] LABS: Erythrocyte Sedimentation Rate 65 MM/HR (0-15); Vitamin D 25-OH Total 26.2 ng/mL (>30)
== END 2021-11-03 08:33 | disposition home or self-care (01) ==
LOC: HO.WFDLDS 08:32
PROVIDERS: Nurse Practitioner Family; Student in an Organized Health Care Education/Training Program; Visit Provider Family Medicine
DX: I10 Essential (primary) hypertension (principal); M35.3 Polymyalgia rheumatica
CPT/HCPCS: 36415; 81001; 82306; 85652; 86140

== ENCOUNTER 2021-11-05 09:25 | Outpatient (REF) | payer MEDICARE, SELFPAY ==
[2021-11-05 11:03] LABS: Appearance Urine CLEAR; Color Urine YELLOW; Glucose Urine UA NEG (NEG); Leukocyte Esterase Urine NEG (NEG); Nitrite Urine NEG (NEG); Specific Gravity - Urine >= 1.030 (1.005-1.025); Urine Blood TRACE (NEG); Urine Ketones NEG (NEG); Urine Protein 2+ MG/DL (NEG-TRACE)
[2021-11-05 11:05] LABS: INTERNATIONAL NORM RATIO 2.6 (0.9-1.1); Prothrombin Time 30.3 SEC (9.9-13.0)
[2021-11-05 11:39] LABS: RBC Urine 0-2 /HPF (0); Squamous Epithelial Cell Urine TRACE /LPF
[2021-11-05 11:40] LABS: Hyaline Casts Urine 0-2 /LPF; WBC Urine 0 /HPF (0-4)
== END 2021-11-05 09:26 | disposition home or self-care (01) ==
LOC: HO.WFDLDS 09:25
PROVIDERS: Visit Provider Family Medicine
DX: I82.402 Acute embolism and thrombosis of unspecified deep veins of left lower extremity (principal)
CPT/HCPCS: 36415; 81001; 81003; 85610

== ENCOUNTER 2021-11-09 09:11 | Outpatient (REF) | payer MEDICARE, SELFPAY ==
[2021-11-09 11:38] LABS: INTERNATIONAL NORM RATIO 2.2 (0.9-1.1); Prothrombin Time 25.1 SEC (9.9-13.0)
== END 2021-11-09 09:12 | disposition home or self-care (01) ==
LOC: HO.WFDLDS 09:11
PROVIDERS: Visit Provider Family Medicine
DX: I82.402 Acute embolism and thrombosis of unspecified deep veins of left lower extremity (principal)
CPT/HCPCS: 36415; 85610

== ENCOUNTER 2021-11-18 11:20 | Outpatient (REF) | payer MEDICARE, SELFPAY ==
[2021-11-18 13:33] LABS: INTERNATIONAL NORM RATIO 1.8 (0.9-1.1); Prothrombin Time 21.1 SEC (9.9-13.0)
== END 2021-11-18 11:21 | disposition home or self-care (01) ==
LOC: HO.WFDLDS 11:20
PROVIDERS: Visit Provider Family Medicine
DX: I82.402 Acute embolism and thrombosis of unspecified deep veins of left lower extremity (principal)
CPT/HCPCS: 36415; 85610

== ENCOUNTER 2021-11-24 09:42 | Outpatient (REF) | payer MEDICARE, SELFPAY ==
[2021-11-24 11:50] LABS: INTERNATIONAL NORM RATIO 1.8 (0.9-1.1); Prothrombin Time 20.6 SEC (9.9-13.0)
== END 2021-11-24 09:43 | disposition home or self-care (01) ==
LOC: HO.WFDLDS 09:42
PROVIDERS: Visit Provider Family Medicine
DX: I82.402 Acute embolism and thrombosis of unspecified deep veins of left lower extremity (principal)
CPT/HCPCS: 36415; 85610

== ENCOUNTER 2021-12-01 08:28 | Outpatient (REF) | payer MEDICARE, SELFPAY ==
[2021-12-01 11:39] LABS: INTERNATIONAL NORM RATIO 2.1 (0.9-1.1); Prothrombin Time 24.1 SEC (9.9-13.0)
[2021-12-01 11:43] LABS: Anion Gap 16 (12-20); Blood Urea Nitrogen 52 mg/dL (9-16); Calcium 9.1 mg/dL (8.4-10.2); Carbon Dioxide 25 mmol/L (22-29); Chloride 105 mmol/L (96-108); Estimated Glomerular Filt Rate 16; Glucose Random 70 mg/dL (60-115); Potassium 3.8 mmol/L (3.3-5.1); Sodium 142 mmol/L (135-145)
== END 2021-12-01 08:29 | disposition home or self-care (01) ==
LOC: HO.WFDLDS 08:28
PROVIDERS: Visit Provider Family Medicine
DX: Z00.00 Encounter for general adult medical examination without abnormal findings (principal); I82.402 Acute embolism and thrombosis of unspecified deep veins of left lower extremity; N18.9 Chronic kidney disease, unspecified
CPT/HCPCS: 36415; 80048; 85610

== ENCOUNTER 2021-12-08 11:57 | Outpatient (REF) | payer MEDICARE, SELFPAY ==
[2021-12-08 13:44] LABS: INTERNATIONAL NORM RATIO 2.4 (0.9-1.1); Prothrombin Time 27.4 SEC (9.9-13.0)
== END 2021-12-08 11:58 | disposition home or self-care (01) ==
LOC: HO.WFDLDS 11:57
PROVIDERS: Visit Provider Family Medicine
DX: I82.402 Acute embolism and thrombosis of unspecified deep veins of left lower extremity (principal)
CPT/HCPCS: 36415; 85610

== ENCOUNTER 2021-12-23 09:07 | Outpatient (REF) | payer MEDICARE, SELFPAY ==
[2021-12-23 11:52] LABS: INTERNATIONAL NORM RATIO 1.9 (0.9-1.1); Prothrombin Time 22.4 SEC (9.9-13.0)
== END 2021-12-23 09:08 | disposition home or self-care (01) ==
LOC: HO.WFDLDS 09:07
PROVIDERS: Visit Provider Family Medicine
DX: I82.402 Acute embolism and thrombosis of unspecified deep veins of left lower extremity (principal)
CPT/HCPCS: 36415; 85610

== ENCOUNTER 2021-12-30 09:02 | Outpatient (REF) | payer MEDICARE, SELFPAY ==
[2021-12-30 11:01] LABS: Prothrombin Time 23.5 SEC (9.9-13.0)
[2021-12-30 11:24] LABS: TSH reflex Free T4 1.58 uIU/mL (0.32-4.0)
== END 2021-12-30 09:03 | disposition home or self-care (01) ==
LOC: HO.WFDLDS 09:02
PROVIDERS: Visit Provider Family Medicine
DX: Z00.00 Encounter for general adult medical examination without abnormal findings (principal); I82.402 Acute embolism and thrombosis of unspecified deep veins of left lower extremity
CPT/HCPCS: 36415; 84443; 85610

== ENCOUNTER → 2022-01-04 08:26 | Outpatient (BNVA) | payer MEDICARE, SELFPAY | PROVIDERS: PCP Family Medicine; Visit Provider Nurse Practitioner Family | DX: M35.3 Polymyalgia rheumatica (principal); M79.89 Other specified soft tissue disorders; M54.50 Low back pain, unspecified; Z79.52 Long term (current) use of systemic steroids | CPT/HCPCS: 99212 ==

== ENCOUNTER 2022-01-04 10:40 | Outpatient (REF) | payer MEDICARE, SELFPAY ==
[2022-01-04 14:04] LABS: Appearance Urine CLEAR; Color Urine YELLOW; Glucose Urine UA NEG (NEG); Leukocyte Esterase Urine NEG (NEG); Nitrite Urine NEG (NEG); Specific Gravity - Urine 1.025 (1.005-1.025); Urine Blood TRACE (NEG); Urine Ketones NEG (NEG); Urine Protein 2+ MG/DL (NEG-TRACE)
[2022-01-04 14:18] LABS: Erythrocyte Sedimentation Rate 66 MM/HR (0-15)
[2022-01-04 14:21] LABS: RBC Urine 0 /HPF (0); Squamous Epithelial Cell Urine 1+ /LPF; WBC Urine 0 /HPF (0-4)
== END 2022-01-04 10:41 | disposition home or self-care (01) ==
LOC: HO.WFDLDS 10:40
PROVIDERS: Family Medicine; Visit Provider Nurse Practitioner Family
DX: M35.3 Polymyalgia rheumatica (principal); Z79.52 Long term (current) use of systemic steroids
CPT/HCPCS: 36415; 81001; 81003; 85652; 86140

== ENCOUNTER 2022-01-08 11:42 | Outpatient (REF) | payer MEDICARE, SELFPAY ==
[2022-01-08 13:37] LABS: INTERNATIONAL NORM RATIO 2.5 (0.9-1.1); Prothrombin Time 28.4 SEC (9.9-13.0)
== END 2022-01-08 11:43 | disposition home or self-care (01) ==
LOC: HO.WFDLDS 11:42
PROVIDERS: Visit Provider Family Medicine
DX: I82.402 Acute embolism and thrombosis of unspecified deep veins of left lower extremity (principal)
CPT/HCPCS: 36415; 85610

== ENCOUNTER 2022-01-15 11:29 | Outpatient (REF) | payer MEDICARE, SELFPAY ==
[2022-01-15 13:39] LABS: INTERNATIONAL NORM RATIO 2.6 (0.9-1.1); Prothrombin Time 29.6 SEC (9.9-13.0)
== END 2022-01-15 11:30 | disposition home or self-care (01) ==
LOC: HO.WFDLDS 11:29
PROVIDERS: Visit Provider Family Medicine
DX: I82.402 Acute embolism and thrombosis of unspecified deep veins of left lower extremity (principal)
CPT/HCPCS: 36415; 85610

== ENCOUNTER 2022-01-20 09:52 | Outpatient (REF) | payer MEDICARE, SELFPAY ==
[2022-01-20 11:35] LABS: INTERNATIONAL NORM RATIO 2.6 (0.9-1.1); Prothrombin Time 30.6 SEC (9.9-13.0)
== END 2022-01-20 09:53 | disposition home or self-care (01) ==
LOC: HO.WFDLDS 09:52
PROVIDERS: Visit Provider Family Medicine
DX: I82.402 Acute embolism and thrombosis of unspecified deep veins of left lower extremity (principal)
CPT/HCPCS: 36415; 85610

== ENCOUNTER 2022-01-22 07:19 | Outpatient (REF) | payer MEDICARE, SELFPAY ==
--- NOTE | ~2022-01-22 | MR_ITS ---
EXAMINATION: MR LUMBAR SPINE WITHOUT CONTRAST CLINICAL INFORMATION: Evaluate for stenosis and nerve root impingement. COMPARISON: None TECHNIQUE: MRI of the lumbar spine was obtained using routine sequences without contrast. FINDINGS: The lumbar vertebral bodies maintain normal heights. There is mild retrolisthesis of L3 on L4. There is mild to moderate disc height loss at L3-L4. Severe asymmetric right-sided disc height loss is seen at L5-S1 with associated subchondral bone marrow edema. A minimal amount of edema is seen at the inferior endplate of L2. The distal spinal cord appears normal. The conus medullaris terminates normally at the L1-L2 level. The visualized paraspinal muscles and intra-abdominal and pelvic contents are within normal limits. SPINAL LEVELS: L1-L2: Mild disc bulging. No spinal canal or neural foraminal stenosis. L2-L3: Disc bulging asymmetric to the left with ligament flavum infolding and facet arthropathy resulting in moderate to severe spinal canal stenosis with asymmetric effacement of the left subarticular zone. Moderate left and mild right neural foraminal stenosis. L3-L4: Left hemilaminectomy changes. Disc bulging with right-sided ligamentum flavum infolding and facet arthropathy resulting in moderate spinal canal stenosis with effacement of the subarticular zones and compression of the traversing L4 nerve roots. Severe left neural foraminal stenosis partly related to foraminal protrusion resulting in significant compression of the exiting left L3 nerve root. Moderate right neural foraminal stenosis. L4-L5: Postoperative findings of left hemilaminectomy. Disc bulging with severe facet arthropathy. Bilateral subarticular stenosis and moderate to severe left and moderate right neural foraminal stenosis with mild compression of the exiting L4 nerve roots. L5-S1: Disc bulging with ligamentum flavum infolding and moderate facet arthropathy resulting in moderate spinal canal stenosis with bilateral subarticular stenosis. Severe bilateral neural foraminal stenosis with compression of the exiting right more than left L5 nerve roots. MR/MR lumbar spine wo con IMPRESSION: Moderate to severe multilevel degenerative spondylosis. At L2-L3 there is moderate to severe spinal canal stenosis and moderate left neural foraminal stenosis and left subarticular stenosis. At L3-L4 there is moderate spinal canal stenosis and compression of the traversing L4 nerve roots. Severe left and moderate right neural foraminal stenosis with significant compression of the exiting left L3 nerve root. At L4-L5 there is moderate to severe left and moderate right neural foraminal stenosis with compression of the exiting L4 nerve roots and bilateral subarticular stenosis. At L5-S1 there is moderate spinal canal stenosis, subarticular stenosis, and severe bilateral neural foraminal stenosis with compression of the right more than left L5 nerve roots.
== END 2022-01-22 07:20 | disposition home or self-care (01) ==
LOC: HO.MRI 07:19
PROVIDERS: PCP Family Medicine; Visit Provider Physical Medicine & Rehabilitation
DX: M47.817 Spondylosis without myelopathy or radiculopathy, lumbosacral region (principal)
CPT/HCPCS: 72148

== ENCOUNTER → 2022-02-02 09:23 | Outpatient (BNVA) | payer MEDICARE, SELFPAY | PROVIDERS: PCP Family Medicine; Visit Provider Nurse Practitioner Family | DX: M35.3 Polymyalgia rheumatica (principal); M79.89 Other specified soft tissue disorders; M54.59 Other low back pain; Z79.52 Long term (current) use of systemic steroids | CPT/HCPCS: 99212 ==

== ENCOUNTER 2022-02-02 10:30 | Outpatient (REF) | payer MEDICARE, SELFPAY ==
[2022-02-02 13:32] LABS: Prothrombin Time 58.3 SEC (9.9-13.0)
[2022-02-02 13:35] LABS: Appearance Urine CLEAR; Color Urine YELLOW; Glucose Urine UA NEG (NEG); Leukocyte Esterase Urine NEG (NEG); Nitrite Urine NEG (NEG); PH 5.5 (5.0-8.0); Specific Gravity - Urine >= 1.030 (1.005-1.025); Urine Blood TRACE (NEG); Urine Ketones NEG (NEG); Urine Protein 2+ MG/DL (NEG-TRACE)
[2022-02-02 13:52] LABS: RBC Urine 0 /HPF (0); Squamous Epithelial Cell Urine TRACE /LPF; WBC Urine 0 /HPF (0-4)
[2022-02-02 13:53] LABS: Amorphous Sediment Urine TRACE /LPF
[2022-02-02 14:03] LABS: Erythrocyte Sedimentation Rate 57 MM/HR (0-15)
[2022-02-02 14:08] LABS: C Reactive Protein 0.36 mg/dL (< or = 0.50)
== END 2022-02-02 10:31 | disposition home or self-care (01) ==
LOC: HO.WFDLDS 10:30
PROVIDERS: Absent Provider Nurse Practitioner Family; Visit Provider Family Medicine
DX: M35.3 Polymyalgia rheumatica (principal); I82.439 Acute embolism and thrombosis of unspecified popliteal vein; I82.449 Acute embolism and thrombosis of unspecified tibial vein; I82.459 Acute embolism and thrombosis of unspecified peroneal vein; G89.29 Other chronic pain; M54.50 Low back pain, unspecified; Z79.01 Long term (current) use of anticoagulants; Z79.52 Long term (current) use of systemic steroids; M47.813 Spondylosis without myelopathy or radiculopathy, cervicothoracic region; M47.816 Spondylosis without myelopathy or radiculopathy, lumbar region
CPT/HCPCS: 36415; 81001; 85610; 85652; 86140

== ENCOUNTER 2022-02-05 09:30 | Outpatient (REF) | payer MEDICARE, SELFPAY ==
[2022-02-05 11:50] LABS: INTERNATIONAL NORM RATIO 2.2 (0.9-1.1); Prothrombin Time 25.7 SEC (9.9-13.0)
[2022-02-05 12:12] LABS: C Reactive Protein 3.96 mg/dL (< or = 0.50)
[2022-02-05 12:24] LABS: Erythrocyte Sedimentation Rate 73 MM/HR (0-15)
== END 2022-02-05 09:31 | disposition home or self-care (01) ==
LOC: HO.WFDLDS 09:30
PROVIDERS: Family Medicine; Visit Provider Nurse Practitioner Family
DX: M35.3 Polymyalgia rheumatica (principal); I82.402 Acute embolism and thrombosis of unspecified deep veins of left lower extremity
CPT/HCPCS: 36415; 85610; 85652; 86140

== ENCOUNTER 2022-02-08 08:56 | Outpatient (REF) | payer MEDICARE, SELFPAY ==
--- NOTE | ~2022-02-08 | US_ITS ---
EXAMINATION: US VENOUS ULTRASOUND WITH DOPPLER LOWER EXTREMITY, LEFT CLINICAL INFORMATION: Left lower extremity pain. Prior history of DVT. COMPARISON: 10/09/2021 TECHNIQUE: Ultrasound of the deep veins is performed from the hip to the calf with compression sonography and color and pulse Doppler assessment. Spectral analysis with color-flow imaging is performed. FINDINGS: There is normal venous compression and respiratory variation and augmented flow. The visualized common femoral vein, superficial femoral vein, profunda femoral vein, popliteal vein, and the trifurcation region shows no evidence of deep venous thrombosis. There is no significant popliteal fossa cyst. If the patient's symptoms persist, followup ultrasound in 5 days 7 days might be of value to exclude proximal propagation from a non-visualized calf vein. US/US venous duplex LE IMPRESSION: No DVT demonstrated in the left lower extremity.
== END 2022-02-08 08:57 | disposition home or self-care (01) ==
LOC: HO.US 08:56
PROVIDERS: PCP Family Medicine; Visit Provider Family Medicine
DX: I82.402 Acute embolism and thrombosis of unspecified deep veins of left lower extremity (principal)
CPT/HCPCS: 93971

== ENCOUNTER 2022-02-22 08:43 | Outpatient (REF) | payer MEDICARE, SELFPAY ==
[2022-02-22 11:40] LABS: INTERNATIONAL NORM RATIO 1.2 (0.9-1.1); Prothrombin Time 13.1 SEC (9.9-13.0)
[2022-02-22 11:56] LABS: Alanine Aminotransferase 7 U/L (0-40); Albumin Level 3.9 g/dL (3.5-5.0); Alkaline Phosphatase 53 U/L (39-117); Anion Gap 17 (12-20); Aspartate Amino Transferase 9 U/L (5-37); Bilirubin Total 0.3 mg/dL (0.0-1.0); Blood Urea Nitrogen 56 mg/dL (9-16); Carbon Dioxide 22 mmol/L (22-29); Chloride 105 mmol/L (96-108); Estimated Glomerular Filt Rate 15; Glucose Random 81 mg/dL (60-115); Potassium 3.8 mmol/L (3.3-5.1); Sodium 140 mmol/L (135-145); Total Protein 6.1 g/dL (6.5-8.0)
[2022-02-22 12:01] LABS: Prostate Specific Antigen Scr 0.64 ng/mL (<0.05-4.0)
== END 2022-02-22 08:44 | disposition home or self-care (01) ==
LOC: HO.WFDLDS 08:43
PROVIDERS: Nurse Practitioner Family; Visit Provider Family Medicine
DX: Z12.5 Encounter for screening for malignant neoplasm of prostate (principal); I82.402 Acute embolism and thrombosis of unspecified deep veins of left lower extremity; M35.3 Polymyalgia rheumatica
CPT/HCPCS: 36415; 80053; 84153; 85610

== ENCOUNTER 2022-03-12 08:32 | Outpatient (REF) | payer MEDICARE, SELFPAY ==
[2022-03-12 11:32] LABS: INTERNATIONAL NORM RATIO 1.1 (0.9-1.1)
[2022-03-12 12:11] LABS: Alanine Aminotransferase < 6 U/L (0-40); Albumin Level 4.1 g/dL (3.5-5.0); Alkaline Phosphatase 51 U/L (39-117); Anion Gap 16 (12-20); Aspartate Amino Transferase 8 U/L (5-37); Bilirubin Total 0.3 mg/dL (0.0-1.0); Blood Urea Nitrogen 59 mg/dL (9-16); Calcium 9.3 mg/dL (8.4-10.2); Carbon Dioxide 24 mmol/L (22-29); Chloride 103 mmol/L (96-108); Estimated Glomerular Filt Rate 11; Glucose Random 76 mg/dL (60-115); Potassium 4.1 mmol/L (3.3-5.1); Sodium 139 mmol/L (135-145); Total Protein 6.1 g/dL (6.5-8.0)
[2022-03-15 06:47] LABS: SARS-COV-2 IgG Spike, Semi-Qnt 100.17 index (<1.00)
== END 2022-03-12 08:33 | disposition home or self-care (01) ==
LOC: HO.WFDLDS 08:32
PROVIDERS: Visit Provider Family Medicine
DX: Z20.822 Contact with and (suspected) exposure to COVID-19 (principal); N18.4 Chronic kidney disease, stage 4 (severe); Z86.718 Personal history of other venous thrombosis and embolism
CPT/HCPCS: 36415; 80053; 85610; 86769

== ENCOUNTER 2022-04-14 11:07 | Outpatient (REF) | payer MEDICARE, SELFPAY ==
[2022-04-14 13:49] LABS: MANUAL DIFF FLAG NO
[2022-04-14 14:06] LABS: Prothrombin Time 11.6 SEC (9.9-13.0)
[2022-04-14 14:22] LABS: Alanine Aminotransferase 8 U/L (0-40); Albumin Level 3.8 g/dL (3.5-5.0); Alkaline Phosphatase 47 U/L (39-117); Anion Gap 17 (12-20); Aspartate Amino Transferase 8 U/L (5-37); Bilirubin Total < 0.2 mg/dL (0.0-1.0); Blood Urea Nitrogen 85 mg/dL (9-16); Calcium 8.6 mg/dL (8.4-10.2); Carbon Dioxide 21 mmol/L (22-29); Chloride 107 mmol/L (96-108); Estimated Glomerular Filt Rate 13; Glucose Random 170 mg/dL (60-115); Phosphorus 5.8 mg/dL (2.7-4.5); Potassium 4.7 mmol/L (3.3-5.1); Sodium 140 mmol/L (135-145)
[2022-04-14 14:45] LABS: Basophils Percent Auto 0.4 % (0-2); Eosinophils Absolute Auto 0.1 X10*3/uL (0.0-0.4); Eosinophils Percent Auto 0.9 % (0-4); Hematocrit 26.3 % (42.0-52.0); Hemoglobin 8.9 g/dl (14.0-18.0); Imm Gran Abs Auto 0.22 X10*3/uL (0.00-0.03); Imm Gran Pct Auto 2.7 % (0.0-0.4); Lymphocytes Absolute Auto 1.5 X10*3/uL (1.2-4.9); Lymphocytes Percent Auto 18.9 % (20-40); Mean Corpuscular HGB Conc 33.8 g/dl (31.0-36.0); Mean Corpuscular Hemoglobin 31.1 pg (27.0-33.0); Mean Platelet Volume 10.8 fL (9.4-12.4); Monocytes Absolute Auto 0.8 X10*3/uL (0.1-1.2); Monocytes Percent Auto 9.8 % (2-11); Neutrophils Absolute Auto 5.5 x10*3/uL (2.0-8.3); Neutrophils Percent Auto 67.3 % (45-73); Platelet Count 153 X10*3/uL (160-400); Red Blood Count 2.86 X10*6/uL (4.60-5.80); Red Cell Distribution Width 13.2 % (11.0-16.0); White Blood Count 8.1 X10*3/uL (4.8-10.8)
== END 2022-04-14 11:08 | disposition home or self-care (01) ==
LOC: HO.WFDLDS 11:07
PROVIDERS: Family Medicine; Visit Provider Internal Medicine
DX: G25.0 Essential tremor (principal); N18.9 Chronic kidney disease, unspecified; Z86.718 Personal history of other venous thrombosis and embolism
CPT/HCPCS: 36415; 80053; 83735; 84100; 85025; 85610

== ENCOUNTER 2022-04-29 09:46 | Outpatient (REF) | payer MEDICARE, SELFPAY ==
[2022-04-29 10:26] LABS: MANUAL DIFF FLAG NO
[2022-04-29 10:34] LABS: Prothrombin Time 11.4 SEC (9.9-13.0)
[2022-04-29 10:51] LABS: Basophils Percent Auto 0.3 % (0-2); Eosinophils Absolute Auto 0.1 X10*3/uL (0.0-0.4); Eosinophils Percent Auto 1.7 % (0-4); Hematocrit 31.5 % (42.0-52.0); Hemoglobin 10.7 g/dl (14.0-18.0); Imm Gran Abs Auto 0.01 X10*3/uL (0.00-0.03); Imm Gran Pct Auto 0.2 % (0.0-0.4); Lymphocytes Absolute Auto 1.1 X10*3/uL (1.2-4.9); Lymphocytes Percent Auto 18.9 % (20-40); Mean Corpuscular Hemoglobin 31.5 pg (27.0-33.0); Mean Corpuscular Volume 92.6 fL (80.0-98.0); Mean Platelet Volume 10.9 fL (9.4-12.4); Monocytes Absolute Auto 0.6 X10*3/uL (0.1-1.2); Monocytes Percent Auto 9.8 % (2-11); Neutrophils Absolute Auto 4.1 x10*3/uL (2.0-8.3); Neutrophils Percent Auto 69.1 % (45-73); Platelet Count 133 X10*3/uL (160-400); Red Cell Distribution Width 14.5 % (11.0-16.0); White Blood Count 5.9 X10*3/uL (4.8-10.8)
[2022-04-29 11:27] LABS: Alanine Aminotransferase 6 U/L (0-40); Albumin Level 4.2 g/dL (3.5-5.0); Alkaline Phosphatase 50 U/L (39-117); Anion Gap 16 (12-20); Aspartate Amino Transferase 10 U/L (5-37); Bilirubin Total 0.4 mg/dL (0.0-1.0); Blood Urea Nitrogen 86 mg/dL (9-16); Calcium 8.9 mg/dL (8.4-10.2); Carbon Dioxide 22 mmol/L (22-29); Chloride 105 mmol/L (96-108); Cholesterol 128 mg/dL; Estimated Glomerular Filt Rate 11; Glucose Fasting 79 mg/dL (60-99); HDL Cholesterol 28 mg/dL; LDL Cholesterol Calculated 84 mg/dl; Potassium 4.4 mmol/L (3.3-5.1); Sodium 139 mmol/L (135-145); Total Protein 6.5 g/dL (6.5-8.0); Triglycerides 82 mg/dL
[2022-04-29 11:32] LABS: Prostate Specific Antigen Scr 0.49 ng/mL (<0.05-4.0)
--- NOTE | 2022-05-11 13:00 | MHC.HEMONCMA ---
called patient for provider, informed him he can have labs done before appt this week. Orders are in.
== END 2022-04-29 09:47 | disposition home or self-care (01) ==
LOC: HO.WFDLDS 09:46
PROVIDERS: Visit Provider Family Medicine
DX: Z00.00 Encounter for general adult medical examination without abnormal findings (principal); Z12.5 Encounter for screening for malignant neoplasm of prostate; G25.0 Essential tremor; D64.9 Anemia, unspecified; Z86.718 Personal history of other venous thrombosis and embolism
CPT/HCPCS: 36415; 80053; 80061; 84153; 85025; 85610

== ENCOUNTER 2022-05-11 11:10 | Outpatient (REF) | payer MEDICARE, SELFPAY ==
[2022-05-11 14:19] LABS: Alanine Aminotransferase 10 U/L (0-40); Albumin Level 4.2 g/dL (3.5-5.0); Alkaline Phosphatase 50 U/L (39-117); Anion Gap 14 (12-20); Aspartate Amino Transferase 14 U/L (5-37); Bilirubin Total 0.5 mg/dL (0.0-1.0); Blood Urea Nitrogen 70 mg/dL (9-16); Calcium 8.8 mg/dL (8.4-10.2); Carbon Dioxide 24 mmol/L (22-29); Chloride 107 mmol/L (96-108); Estimated Glomerular Filt Rate 12; Glucose Fasting 76 mg/dL (60-99); Potassium 4.4 mmol/L (3.3-5.1); Sodium 141 mmol/L (135-145); Total Protein 6.5 g/dL (6.5-8.0)
== END 2022-05-11 11:11 | disposition home or self-care (01) ==
LOC: HO.WFDLDS 11:10
PROVIDERS: Visit Provider Family Medicine
DX: N18.4 Chronic kidney disease, stage 4 (severe) (principal)
CPT/HCPCS: 36415; 80053

== ENCOUNTER 2022-05-13 10:26 | Outpatient (REF) | payer MEDICARE, SELFPAY ==
[2022-05-13 13:37] LABS: MANUAL DIFF FLAG NO
[2022-05-13 13:55] LABS: Alanine Aminotransferase 10 U/L (0-40); Alkaline Phosphatase 49 U/L (39-117); Anion Gap 15 (12-20); Aspartate Amino Transferase 11 U/L (5-37); Bilirubin Total 0.4 mg/dL (0.0-1.0); Blood Urea Nitrogen 66 mg/dL (9-16); C Reactive Protein 0.28 mg/dL (< or = 0.50); Calcium 8.7 mg/dL (8.4-10.2); Carbon Dioxide 23 mmol/L (22-29); Chloride 109 mmol/L (96-108); Estimated Glomerular Filt Rate 12; Glucose Fasting 81 mg/dL (60-99); Potassium 4.4 mmol/L (3.3-5.1); Prothrombin Time 11.6 SEC (10.0-13.1); Sodium 143 mmol/L (135-145); Total Protein 6.2 g/dL (6.5-8.0)
[2022-05-13 14:02] LABS: Basophils Percent Auto 0.5 % (0-2); Eosinophils Absolute Auto 0.1 X10*3/uL (0.0-0.4); Eosinophils Percent Auto 1.6 % (0-4); Hematocrit 30.2 % (42.0-52.0); Hemoglobin 10.1 g/dl (14.0-18.0); Imm Gran Abs Auto 0.02 X10*3/uL (0.00-0.03); Imm Gran Pct Auto 0.3 % (0.0-0.4); Lymphocytes Percent Auto 17.9 % (20-40); Mean Corpuscular HGB Conc 33.4 g/dl (31.0-36.0); Mean Corpuscular Hemoglobin 31.3 pg (27.0-33.0); Mean Corpuscular Volume 93.5 fL (80.0-98.0); Mean Platelet Volume 10.6 fL (9.4-12.4); Monocytes Absolute Auto 0.5 X10*3/uL (0.1-1.2); Monocytes Percent Auto 8.5 % (2-11); Neutrophils Absolute Auto 4.1 x10*3/uL (2.0-8.3); Neutrophils Percent Auto 71.2 % (45-73); Platelet Count 159 X10*3/uL (160-400); Red Blood Count 3.23 X10*6/uL (4.60-5.80); Red Cell Distribution Width 13.8 % (11.0-16.0); White Blood Count 5.8 X10*3/uL (4.8-10.8)
[2022-05-13 14:14] LABS: Prostate Specific Antigen Scr 0.52 ng/mL (<0.05-4.0)
[2022-05-13 14:48] LABS: Erythrocyte Sedimentation Rate 28 MM/HR (0-15)
== END 2022-05-13 10:27 | disposition home or self-care (01) ==
LOC: HO.WFDLDS 10:26
PROVIDERS: Absent Provider Nurse Practitioner Family; Visit Provider Family Medicine
DX: Z12.5 Encounter for screening for malignant neoplasm of prostate (principal); N18.9 Chronic kidney disease, unspecified; R79.82 Elevated C-reactive protein (CRP); Z86.718 Personal history of other venous thrombosis and embolism
CPT/HCPCS: 36415; 80048; 80053; 84153; 85025; 85610; 85652; 86140

== ENCOUNTER 2022-05-27 10:13 | Outpatient (REF) | payer MEDICARE, SELFPAY ==
[2022-05-27 11:23] LABS: Hematocrit 32.8 % (42.0-52.0); Mean Corpuscular HGB Conc 33.5 g/dl (31.0-36.0); Mean Corpuscular Hemoglobin 31.4 pg (27.0-33.0); Mean Corpuscular Volume 93.7 fL (80.0-98.0); Mean Platelet Volume 10.3 fL (9.4-12.4); Platelet Count 173 X10*3/uL (160-400); White Blood Count 7.2 X10*3/uL (4.8-10.8)
[2022-05-27 11:54] LABS: Alanine Aminotransferase < 6 U/L (0-40); Albumin Level 4.1 g/dL (3.5-5.0); Alkaline Phosphatase 54 U/L (39-117); Anion Gap 16 (12-20); Aspartate Amino Transferase 13 U/L (5-37); Bilirubin Total 0.5 mg/dL (0.0-1.0); Blood Urea Nitrogen 56 mg/dL (9-16); Calcium 8.9 mg/dL (8.4-10.2); Carbon Dioxide 21 mmol/L (22-29); Chloride 107 mmol/L (96-108); Estimated Glomerular Filt Rate 12; Glucose Random 94 mg/dL (60-115); Phosphorus 5.7 mg/dL (2.7-4.5); Potassium 4.9 mmol/L (3.3-5.1); Sodium 139 mmol/L (135-145); Total Protein 6.5 g/dL (6.5-8.0)
== END 2022-05-27 10:14 | disposition home or self-care (01) ==
LOC: HO.WFDLDS 10:13
PROVIDERS: Family Medicine; Visit Provider Internal Medicine
DX: D64.9 Anemia, unspecified (principal); N18.9 Chronic kidney disease, unspecified
CPT/HCPCS: 36415; 80053; 84100; 85027

== ENCOUNTER 2022-06-09 09:25 | Outpatient (REF) | payer MEDICARE, SELFPAY ==
[2022-06-09 11:17] LABS: MANUAL DIFF FLAG NO
[2022-06-09 12:04] LABS: Basophils Percent Auto 0.4 % (0-2); Eosinophils Absolute Auto 0.1 X10*3/uL (0.0-0.4); Eosinophils Percent Auto 1.3 % (0-4); Hematocrit 30.9 % (42.0-52.0); Hemoglobin 10.6 g/dl (14.0-18.0); Imm Gran Abs Auto 0.04 X10*3/uL (0.00-0.03); Imm Gran Pct Auto 0.5 % (0.0-0.4); Lymphocytes Absolute Auto 1.3 X10*3/uL (1.2-4.9); Lymphocytes Percent Auto 16.7 % (20-40); Mean Corpuscular HGB Conc 34.3 g/dl (31.0-36.0); Mean Corpuscular Hemoglobin 31.6 pg (27.0-33.0); Mean Corpuscular Volume 92.2 fL (80.0-98.0); Mean Platelet Volume 10.8 fL (9.4-12.4); Monocytes Absolute Auto 0.7 X10*3/uL (0.1-1.2); Monocytes Percent Auto 9.2 % (2-11); Neutrophils Absolute Auto 5.7 x10*3/uL (2.0-8.3); Neutrophils Percent Auto 71.9 % (45-73); Platelet Count 195 X10*3/uL (160-400); Red Blood Count 3.35 X10*6/uL (4.60-5.80); Red Cell Distribution Width 13.3 % (11.0-16.0); White Blood Count 7.9 X10*3/uL (4.8-10.8)
[2022-06-09 12:26] LABS: Erythrocyte Sedimentation Rate 44 MM/HR (0-15)
[2022-06-09 13:53] LABS: Alanine Aminotransferase < 6 U/L (0-40); Albumin Level 4.1 g/dL (3.5-5.0); Alkaline Phosphatase 57 U/L (39-117); Anion Gap 18 (12-20); Aspartate Amino Transferase 11 U/L (5-37); Bilirubin Total 0.3 mg/dL (0.0-1.0); Blood Urea Nitrogen 60 mg/dL (9-16); C Reactive Protein 0.76 mg/dL (< or = 0.50); Calcium 9.4 mg/dL (8.4-10.2); Carbon Dioxide 22 mmol/L (22-29); Chloride 107 mmol/L (96-108); Estimated Glomerular Filt Rate 10; Glucose Random 93 mg/dL (60-115); Potassium 4.8 mmol/L (3.3-5.1); Sodium 142 mmol/L (135-145); Total Protein 6.5 g/dL (6.5-8.0)
[2022-06-09 14:39] LABS: Alanine Aminotransferase < 6 U/L (0-40); Albumin Level 4.1 g/dL (3.5-5.0); Alkaline Phosphatase 55 U/L (39-117); Anion Gap 19 (12-20); Aspartate Amino Transferase 10 U/L (5-37); Bilirubin Total 0.4 mg/dL (0.0-1.0); Blood Urea Nitrogen 61 mg/dL (9-16); Calcium 9.2 mg/dL (8.4-10.2); Carbon Dioxide 20 mmol/L (22-29); Chloride 107 mmol/L (96-108); Estimated Glomerular Filt Rate 11; Glucose Random 94 mg/dL (60-115); Phosphorus 5.7 mg/dL (2.7-4.5); Potassium 4.6 mmol/L (3.3-5.1); Sodium 141 mmol/L (135-145); Total Protein 6.4 g/dL (6.5-8.0)
== END 2022-06-09 09:26 | disposition home or self-care (01) ==
LOC: HO.WFDLDS 09:25
PROVIDERS: Internal Medicine; Nurse Practitioner Family; Visit Provider Family Medicine
DX: D64.9 Anemia, unspecified (principal); M35.3 Polymyalgia rheumatica; N18.9 Chronic kidney disease, unspecified
CPT/HCPCS: 36415; 80053; 84100; 85025; 85652; 86140

== ENCOUNTER 2022-06-29 08:00 | Outpatient (REF) | payer MEDICARE, SELFPAY ==
[2022-06-29 11:16] LABS: MANUAL DIFF FLAG NO
[2022-06-29 11:51] LABS: Basophils Absolute Auto 0.1 X10*3/uL (0.0-0.2); Basophils Percent Auto 0.8 % (0-2); Eosinophils Absolute Auto 0.1 X10*3/uL (0.0-0.4); Eosinophils Percent Auto 1.8 % (0-4); Hematocrit 33.5 % (42.0-52.0); Imm Gran Abs Auto 0.04 X10*3/uL (0.00-0.03); Imm Gran Pct Auto 0.7 % (0.0-0.4); Lymphocytes Absolute Auto 1.5 X10*3/uL (1.2-4.9); Lymphocytes Percent Auto 24.5 % (20-40); Mean Corpuscular HGB Conc 32.8 g/dl (31.0-36.0); Mean Corpuscular Hemoglobin 30.9 pg (27.0-33.0); Mean Corpuscular Volume 94.1 fL (80.0-98.0); Mean Platelet Volume 11.2 fL (9.4-12.4); Monocytes Absolute Auto 0.6 X10*3/uL (0.1-1.2); Monocytes Percent Auto 10.2 % (2-11); Neutrophils Absolute Auto 3.8 x10*3/uL (2.0-8.3); Platelet Count 182 X10*3/uL (160-400); Red Blood Count 3.56 X10*6/uL (4.60-5.80); Red Cell Distribution Width 13.6 % (11.0-16.0); White Blood Count 6.1 X10*3/uL (4.8-10.8)
[2022-06-29 13:01] LABS: Alanine Aminotransferase 7 U/L (0-40); Alkaline Phosphatase 49 U/L (39-117); Anion Gap 18 (12-20); Aspartate Amino Transferase 10 U/L (5-37); Bilirubin Total 0.4 mg/dL (0.0-1.0); Blood Urea Nitrogen 61 mg/dL (9-16); Carbon Dioxide 21 mmol/L (22-29); Chloride 107 mmol/L (96-108); Estimated Glomerular Filt Rate 12; Glucose Random 83 mg/dL (60-115); Potassium 4.6 mmol/L (3.3-5.1); Sodium 141 mmol/L (135-145); Total Protein 6.4 g/dL (6.5-8.0)
== END 2022-06-29 08:01 | disposition home or self-care (01) ==
LOC: HO.WFDLDS 08:00
PROVIDERS: Visit Provider Internal Medicine
DX: D64.9 Anemia, unspecified (principal); N18.9 Chronic kidney disease, unspecified
CPT/HCPCS: 36415; 80053; 85025

== ENCOUNTER → 2022-07-15 09:56 | Outpatient (BNVA) | payer MEDICARE, SELFPAY | PROVIDERS: PCP Family Medicine; Visit Provider Nurse Practitioner Family | DX: M35.3 Polymyalgia rheumatica (principal); M54.50 Low back pain, unspecified; M79.89 Other specified soft tissue disorders; M85.80 Other specified disorders of bone density and structure, unspecified site; N18.4 Chronic kidney disease, stage 4 (severe) | CPT/HCPCS: 99212 ==

== ENCOUNTER 2022-07-20 09:02 | Outpatient (REF) | payer MEDICARE, SELFPAY ==
[2022-07-20 10:57] LABS: Imm Gran Abs Auto 0.02 X10*3/uL (0.00-0.03); Imm Gran Pct Auto 0.3 % (0.0-0.4); Monocytes Absolute Auto 0.6 X10*3/uL (0.1-1.2); SCAN SMEAR FLAG 1
[2022-07-20 11:25] LABS: Basophils Percent Auto 0.6 % (0-2); Eosinophils Absolute Auto 0.1 X10*3/uL (0.0-0.4); Eosinophils Percent Auto 1.8 % (0-4); Hematocrit 30.8 % (42.0-52.0); Hemoglobin 10.5 g/dl (14.0-18.0); Lymphocytes Absolute Auto 1.7 X10*3/uL (1.2-4.9); Mean Corpuscular HGB Conc 34.1 g/dl (31.0-36.0); Mean Corpuscular Hemoglobin 30.5 pg (27.0-33.0); Mean Corpuscular Volume 89.5 fL (80.0-98.0); Mean Platelet Volume 10.9 fL (9.4-12.4); Monocytes Percent Auto 9.1 % (2-11); Neutrophils Absolute Auto 4.3 x10*3/uL (2.0-8.3); Neutrophils Percent Auto 63.2 % (45-73); Platelet Count 174 X10*3/uL (160-400); Red Blood Count 3.44 X10*6/uL (4.60-5.80); Red Cell Distribution Width 13.2 % (11.0-16.0); White Blood Count 6.8 X10*3/uL (4.8-10.8)
[2022-07-20 11:30] LABS: MANUAL DIFF FLAG NO
== END 2022-07-20 09:03 | disposition home or self-care (01) ==
LOC: HO.WFDLDS 09:02
PROVIDERS: Visit Provider Internal Medicine
DX: D64.9 Anemia, unspecified (principal)
CPT/HCPCS: 36415; 85025

== ENCOUNTER 2022-08-19 08:30 | Outpatient (REF) | payer MEDICARE, SELFPAY ==
[2022-08-19 10:55] LABS: MANUAL DIFF FLAG NO
[2022-08-19 11:52] LABS: Basophils Absolute Auto 0.1 X10*3/uL (0.0-0.2); Basophils Percent Auto 0.7 % (0-2); Eosinophils Absolute Auto 0.1 X10*3/uL (0.0-0.4); Eosinophils Percent Auto 1.6 % (0-4); Hematocrit 29.9 % (42.0-52.0); Imm Gran Abs Auto 0.03 X10*3/uL (0.00-0.03); Imm Gran Pct Auto 0.4 % (0.0-0.4); Lymphocytes Absolute Auto 1.7 X10*3/uL (1.2-4.9); Lymphocytes Percent Auto 23.8 % (20-40); Mean Corpuscular HGB Conc 33.4 g/dl (31.0-36.0); Mean Corpuscular Hemoglobin 30.7 pg (27.0-33.0); Mean Corpuscular Volume 91.7 fL (80.0-98.0); Monocytes Absolute Auto 0.7 X10*3/uL (0.1-1.2); Monocytes Percent Auto 10.3 % (2-11); Neutrophils Absolute Auto 4.5 x10*3/uL (2.0-8.3); Neutrophils Percent Auto 63.2 % (45-73); Platelet Count 188 X10*3/uL (160-400); Red Blood Count 3.26 X10*6/uL (4.60-5.80); Red Cell Distribution Width 13.6 % (11.0-16.0); White Blood Count 7.1 X10*3/uL (4.8-10.8)
== END 2022-08-19 08:31 | disposition home or self-care (01) ==
LOC: HO.WFDLDS 08:30
PROVIDERS: Visit Provider Internal Medicine
DX: D64.9 Anemia, unspecified (principal)
CPT/HCPCS: 36415; 85025

== ENCOUNTER 2022-09-16 09:10 | Outpatient (REF) | payer MEDICARE, SELFPAY ==
[2022-09-16 11:09] LABS: MANUAL DIFF FLAG NO
[2022-09-16 11:31] LABS: Appearance Urine Clear; Color Urine Yellow; Glucose Urine UA Negative (Negative); Leukocyte Esterase Urine Negative (Negative); Nitrite Urine Negative (Negative); UMIC TRIGGER UA YES; Urine Blood Negative (Negative); Urine Ketones Negative (Negative); Urine Protein 30 (1+) mg/dL (Neg-Trace)
[2022-09-16 11:33] LABS: Bacteria Urine None Seen (None Seen); RBC Urine 0-2 /HPF (0-2); Squamous Epithelial Cell Urine 0-2 /HPF (0-2); WBC Urine 0-5 /HPF (0-5)
[2022-09-16 12:06] LABS: Creatinine Urine 56.83 mg/dL; Protein/Creatinine Ratio, Ur 0.74 (<0.2); Total Protein Urine Random 42 mg/dL (<12)
[2022-09-16 12:09] LABS: Basophils Percent Auto 0.4 % (0-2); Eosinophils Percent Auto 1.2 % (0-4); Hematocrit 30.4 % (42.0-52.0); Hemoglobin 10.2 g/dl (14.0-18.0); Imm Gran Pct Auto 0.4 % (0.0-0.4); Lymphocytes Percent Auto 17.7 % (20-40); Mean Corpuscular HGB Conc 33.6 g/dl (31.0-36.0); Mean Corpuscular Hemoglobin 30.5 pg (27.0-33.0); Mean Platelet Volume 11.4 fL (9.4-12.4); Monocytes Percent Auto 9.9 % (2-11); Neutrophils Percent Auto 70.4 % (45-73); Platelet Count 184 X10*3/uL (160-400); Red Blood Count 3.34 X10*6/uL (4.60-5.80); White Blood Count 6.7 X10*3/uL (4.8-10.8)
[2022-09-16 12:10] LABS: Eosinophils Absolute Auto 0.1 X10*3/uL (0.0-0.4); Imm Gran Abs Auto 0.03 X10*3/uL (0.00-0.03); Lymphocytes Absolute Auto 1.2 X10*3/uL (1.2-4.9); Monocytes Absolute Auto 0.7 X10*3/uL (0.1-1.2); Neutrophils Absolute Auto 4.7 x10*3/uL (2.0-8.3)
[2022-09-16 12:18] LABS: Anion Gap 18 (12-20); Blood Urea Nitrogen 58 mg/dL (9-16); Calcium 8.7 mg/dL (8.4-10.2); Carbon Dioxide 20 mmol/L (22-29); Chloride 107 mmol/L (96-108); Iron 82 mcg/dL (45-160); Percent Iron Saturation 37 % (15-50); Sodium 140 mmol/L (135-145); Total Iron Binding Capacity 224 mcg/dL (228-428); Unsaturated Iron Binding 142 ug/dL; Uric Acid 7.3 mg/dL (3.4-7.0)
[2022-09-16 12:30] LABS: Ferritin 158 ng/mL (20-250); TSH reflex Free T4 3.09 uIU/mL (0.32-4.0)
[2022-09-16 13:01] LABS: Vitamin D 25-OH Total 50.7 ng/mL (>30)
[2022-09-16 13:07] LABS: Estimated Glomerular Filt Rate 14
[2022-09-16 13:20] LABS: Renal w Reflex Lab Use Only Order verified
[2022-09-17 14:12] LABS: Calcium (PTHI) 8.7 mg/dL (8.6-10.3); PTHI 139 pg/mL (16-77)
[2022-09-19 20:57] LABS: Calcium, Ionized 4.8 mg/dL (4.8-5.6)
[2022-09-22 17:33] LABS: VITAMIN D (1,25 OH) D3 9 pg/mL; Vit D (1,25-Dihydroxy) Total 9 pg/mL (18-72); Vitamin D (1,25 OH) D2 <8 pg/mL
== END 2022-09-16 09:11 | disposition home or self-care (01) ==
LOC: HO.WFDLDS 09:10
PROVIDERS: Internal Medicine; PCP Family Medicine; Visit Provider Internal Medicine Nephrology
DX: E11.22 Type 2 diabetes mellitus with diabetic chronic kidney disease (principal); E11.21 Type 2 diabetes mellitus with diabetic nephropathy; I13.11 Hypertensive heart and chronic kidney disease without heart failure, with stage 5 chronic kidney disease, or end stage renal disease; N18.5 Chronic kidney disease, stage 5; D63.1 Anemia in chronic kidney disease; N40.1 Benign prostatic hyperplasia with lower urinary tract symptoms; N25.81 Secondary hyperparathyroidism of renal origin
CPT/HCPCS: 36415; 80051; 81001; 82306; 82310; 82330; 82565; 82652; 82728; 83540; 83970; 84156; 84443; 84520; 84550; 85025

== ENCOUNTER 2022-09-17 11:00 | Outpatient (RCR) | payer MEDICARE, SELFPAY ==
[2022-02-08 08:25] VITALS: BP 171/76; PULSE 54; TEMP 36.6; O2SAT 98; BMI 25.6
[2022-02-08 09:00] LABS: MANUAL DIFF FLAG NO
--- NOTE | 2022-02-08 09:17 | PM.HEMONCPN ---
[facility] Medical History: Medical History (Last Reviewed 02/02/22 @ 09:53 by Alix Cardenas NP) HTN (hypertension) Surgical History: Surgical History (Last Reviewed 02/02/22 @ 09:53 by Alix Cardenas NP) No pertinent past surgical history Social History: Social History (Last Reviewed 02/02/22 @ 09:53 by Alix Cardenas NP) Living Situation History: Housing: Condominium Tobacco History: Patient Tobacco Use Status: Current everyday Tobacco Tobacco use type: Cigarette Cigarettes Per Day: 10 Years Smoked: 54 e-Cigarette/Vaping Use: Never Used Second Hand Smoke Exposure: Yes Occupation Assessmet: service: No Current occupational status: employed Current occupation: Security Home Medications and Allergies Home Medications Medication Instructions Recorded Confirmed Type glipizide 5 mg tablet, extended 5 mg PO DAILY tab 10/09/21 02/08/22 History release 24 hr nifedipine 60 mg tablet,extended 60 mg PO DAILY 10/13/21 02/08/22 History release 24 hr cholecalciferol (vitamin D3) 50 50 mcg PO DAILY 11/12/21 02/08/22 History mcg (2,000 unit) capsule Allergies Allergy/AdvReac Type Severity Reaction Status Date / Time No Known Allergies Allergy Verified 02/02/22 09:34 [No Known Allergies*] Exam Vital signs: Vital Signs Temp 97.8 F 02/08/22 08:25 Pulse 54 02/08/22 08:25 BP 171/76 H 02/08/22 08:25 Pulse Ox 98 02/08/22 08:25 Intake & Output 02/07/22 02/08/22 02/08/22 18:59 06:59 18:59 Other: Weight 85.8 kg Weight in Grams [id number] Weight 85.8 kg BMI result Body Mass Index 25.6 Data - Labs CBC & Chem 7: 02/08/22 08:58
--- NOTE | 2022-02-08 09:18 | P.CNHO_ITS ---
Subjective - Subjective Chief complaint: Blood clot Patient: new to practice Consult date: 02/08/22 Primary Care Provider: Kuldip Miranda MD HPI - Consult Narrative Reason for consult: left lower extremity DVT Narrative: Prasanna Clement is a 76 year old male with chronic kidney disease and recent diagnosis of left lower extremity DVT sent for Hematology consultation. Patient says that he had no symptoms such as swelling or significant pain in has left leg but he had a cramp like sensation in his calf. He was sent for Doppler ultrasound which revealed an acute clot in the popliteal vein. He has been on warfarin for anticoagulation. He has chronic back pain and underlying rheumatological issues. He goes for steroid injection in his spine on and off. He is not able to walk because of his back pain and wants to have an injection. He needs to come off anticoagulation. He was asked to stop blood thinners 5 days prior to procedure. He reports no prior history of thromboembolism. No pleuritic chest pain, shortness of breath or cough. He has been aware of anemia for a long time, he denies getting Procrit injections. His followed by cleaner assistant. He has no other complaints such as fever, chills, night sweats or unexplained weight loss. 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 Review of Systems - Constitutional Reports as per HPI, Reports no additional constitutional complaints - Cardiovascular Reports no additional cardiovascular complaints - Respiratory Reports no additional respiratory complaints - Gastrointestinal Reports no additional gastrointestinal complaints, Denies abdominal pain, Denies bloating, Denies change in bowel habits Oncology Screenings - ECOG Performance Status ECOG Performance Status: [facility] Medical History: Medical History (Last Updated 02/08/22 @ 09:28 by Jacinta Stovall MD) Chronic back pain Chronic kidney disease DVT (deep venous thrombosis) HTN (hypertension) Polymyalgia rheumatica Surgical History: Surgical History (Last Updated 02/08/22 @ 09:28 by Jacinta Stovall MD) H/O left hemicolectomy No pertinent past surgical history Social History: Social History (Last Reviewed 02/02/22 @ 09:53 by Alix Cardenas NP) [facility] Tobacco History: Patient Tobacco Use Status: Current everyday Tobacco Tobacco use type: Cigarette Years Smoked: 54 e-Cigarette/Vaping Use: Never Used Second Hand Smoke Exposure: Yes Occupation Assessmet: service: No Current occupational status: employed Current occupation: Security Home Medications and Allergies Home Medications Medication Instructions Recorded Confirmed Type glipizide 5 mg tablet, extended 5 mg PO DAILY tab 10/09/21 02/08/22 History release 24 hr nifedipine 60 mg tablet,extended 60 mg PO DAILY 10/13/21 02/08/22 History release 24 hr cholecalciferol (vitamin D3) 50 50 mcg PO DAILY 11/12/21 02/08/22 History mcg (2,000 unit) capsule Allergies Allergy/AdvReac Type Severity Reaction Status Date / Time No Known Allergies Allergy Verified 02/02/22 09:34 [No Known Allergies*] Physical Exam Vital signs: Vital Signs Temp 97.8 F 02/08/22 08:25 Pulse 54 02/08/22 08:25 BP 171/76 H 02/08/22 08:25 Pulse Ox 98 02/08/22 08:25 Intake & Output 02/07/22 02/08/22 02/08/22 18:59 06:59 18:59 Other: Weight 85.8 kg Weight in Grams [id number] Weight 85.8 kg - Constitutional Present: no acute distress, average body habitus - Routine HEENT Exam Head: Present: normal inspection Eye: Present: EOMI - Routine Neck Exam Absent: lymphadenopathy - Routine Respiratory Exam Present: CTAB. Absent: accessory muscle use - Routine Cardiovascular Exam Cardiovascular: Present: RRR, S1, S2 - Routine Extremities Exam Present: normal inspection - Routine Skin Exam Present: intact. Absent: cyanosis - Routine Neurological Exam Present: alert, oriented X3 Hem/Onc Consult Result - Labs CBC & Chem 7: 02/08/22 08:58 Assessment and Plan Patient Active problem list reviewed?: Yes (1) Left leg DVT Problem details: 10/09/2021 left popliteal vein and calf DVT. Status: Acute Assessment and plan: 1. This is a pleasant 76-year-old male with chronic kidney disease was diagnosed with left lower extremity DVT in October 2021. This was spontaneous with no triggering factors and 1st episode of thrombosis. He is on anticoagulation with warfarin. He requires steroid injection in his back because of chronic arthritis and spine issues. As he has been on anticoagulation for more than 3 months, warfarin can be interrupted for surgical procedure. I have not recommended bridging with Lovenox because of his chronic kidney disease. Repeat Doppler of left lower extremity has been ordered for today. 2. Chronic normocytic anemia related to underlying kidney disease. He is not on ANNA therapy. Submit iron levels, vitamin B12 and folate. I thank you very much for this consultation. Further recommendations to follow. Follow-up in 6 weeks. - Time Spent With Patient Time Spent with Patient (in minutes): 30
[2022-02-08 09:31] LABS: Iron 65 mcg/dL (45-160); Percent Iron Saturation 31 % (15-50); Total Iron Binding Capacity 213 mcg/dL (228-428); Unsaturated Iron Binding 148 ug/dL
[2022-02-08 09:50] LABS: Basophils Percent Auto 0.6 % (0-2); Eosinophils Absolute Auto 0.1 X10*3/uL (0.0-0.4); Eosinophils Percent Auto 1.4 % (0-4); Hematocrit 26.6 % (42.0-52.0); Hemoglobin 8.9 g/dl (14.0-18.0); Imm Gran Abs Auto 0.05 X10*3/uL (0.00-0.03); Imm Gran Pct Auto 0.7 % (0.0-0.4); Lymphocytes Absolute Auto 1.7 X10*3/uL (1.2-4.9); Lymphocytes Percent Auto 24.7 % (20-40); Mean Corpuscular HGB Conc 33.5 g/dl (31.0-36.0); Mean Corpuscular Hemoglobin 31.4 pg (27.0-33.0); Mean Platelet Volume 10.3 fL (9.4-12.4); Monocytes Absolute Auto 0.8 X10*3/uL (0.1-1.2); Monocytes Percent Auto 11.9 % (2-11); Neutrophils Absolute Auto 4.2 x10*3/uL (2.0-8.3); Neutrophils Percent Auto 60.7 % (45-73); Platelet Count 180 X10*3/uL (160-400); Red Blood Count 2.83 X10*6/uL (4.60-5.80); Red Cell Distribution Width 13.2 % (11.0-16.0); White Blood Count 6.9 X10*3/uL (4.8-10.8)
[2022-02-08 11:27] LABS: Folate 5.4 ng/mL (> or = 4.0); Vitamin B12 366 pg/mL (200-900)
--- NOTE | 2022-02-08 14:53 | MHC.HEMONC ---
Patient arrived for a consult with Dr Stovall, his Ashley was present. Vital signs done, medications reviewed and labs drawn by phlebotomy. Dr Stovall in to see patient. Prasanna sent to US for Venous Study for DVT. Results reviewed by Dr Stovall, no DVT present. Patients contacted and patient instructed to hold his wafarin 5 days prior to cortisone injection and he may resume warafin the day after the injection. Follow up scheduled for 03/18/22.
--- NOTE | 2022-02-16 08:42 | P.PNHO_ITS ---
Medical Summary - Medical Summary Date of Service: 02/16/22 Chief complaint: follow-up Medical Summary: Diagnosis: Left lower extremity DVT 2020 Chronic kidney disease and recent diagnosis of left lower extremity DVT sent for Hematology consultation. Patient says that he had no symptoms such as swelling or significant pain in has left leg but he had a cramp like sensation in his calf. He was sent for Doppler ultrasound which revealed an acute clot in the popliteal vein. He has chronic back pain and underlying rheumatological issues. He goes for steroid injection in his spine on and off. He is on warfarin and not on DOACs because of chronic kidney disease. 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 had questions about recent Doppler study and whether the she remain on anticoagulation. He is going for steroid injection of his pack tomorrow. He has been off blood thinner now for about 4 days. He denies any bruising or bleeding. [facility] Medical History: Medical History (Last Updated 02/08/22 @ 09:28 by Jacinta Stovall MD) Chronic back pain Chronic kidney disease DVT (deep venous thrombosis) HTN (hypertension) Polymyalgia rheumatica Surgical History: Surgical History (Last Updated 02/08/22 @ 09:28 by Jacinta Stovall MD) H/O left hemicolectomy No pertinent past surgical history Social History: Social History (Last Reviewed 02/02/22 @ 09:53 by Alix Cardenas NP) Living [facility] Tobacco History: Patient Tobacco Use Status: Current everyday Tobacco Tobacco use type: Cigarette Years Smoked: 54 e-Cigarette/Vaping Use: Never Used Second Hand Smoke Exposure: Yes Occupation Assessmet: service: No Current occupational status: employed Current occupation: Security Home Medications and Allergies Home Medications Medication Instructions Recorded Confirmed Type glipizide 5 mg tablet, extended 5 mg PO DAILY tab 10/09/21 02/08/22 History release 24 hr nifedipine 60 mg tablet,extended 60 mg PO DAILY 10/13/21 02/08/22 History release 24 hr cholecalciferol (vitamin D3) 50 50 mcg PO DAILY 11/12/21 02/08/22 History mcg (2,000 unit) capsule Allergies Allergy/AdvReac Type Severity Reaction Status Date / Time No Known Allergies Allergy Verified 02/02/22 09:34 [No Known Allergies*] Exam Vital signs: Vital Signs Temp 97.8 F 02/08/22 08:25 Pulse 54 02/08/22 08:25 BP 171/76 H 02/08/22 08:25 Pulse Ox 98 02/08/22 08:25 Weight 85.8 kg BMI result Body Mass Index 25.6 - Constitutional Present: no acute distress, average body habitus - Routine HEENT Exam Head: Present: normal inspection - Routine Respiratory Exam Present: CTAB. Absent: accessory muscle use - Routine Cardiovascular Exam Cardiovascular: Present: RRR, S1, S2 - Routine Extremities Exam Present: normal inspection - Routine Skin Exam Present: intact. Absent: cyanosis - Routine Neurological Exam Present: alert, oriented X3 Data - Labs CBC & Chem 7: 02/08/22 08:58 Labs: 02/08/22 08:58 Complete Blood Count Auto Diff Stat IRON PROFILE Routine Vitamin B12 and Folate Routine Laboratory Last Values WBC 6.9 X10*3/uL (4.8-10.8) 02/08/22 08:58 RBC 2.83 X10*6/uL (4.60-5.80) L 02/08/22 08:58 Hgb 8.9 g/dl (14.0-18.0) L 02/08/22 08:58 Hct 26.6 % (42.0-52.0) L 02/08/22 08:58 MCV 94.0 fL (80.0-98.0) 02/08/22 08:58 MCH 31.4 pg (27.0-33.0) 02/08/22 08:58 MCHC 33.5 g/dl (31.0-36.0) 02/08/22 08:58 RDW 13.2 % (11.0-16.0) 02/08/22 08:58 Plt Count 180 X10*3/uL (160-400) 02/08/22 08:58 MPV 10.3 fL (9.4-12.4) 02/08/22 08:58 Immature Gran % (Auto) 0.7 % (0.0-0.4) H 02/08/22 08:58 Neut % (Auto) 60.7 % (45-73) 02/08/22 08:58 Lymph % (Auto) 24.7 % (20-40) 02/08/22 08:58 [place] % (Auto) 11.9 % (2-11) H 02/08/22 08:58 Eos % (Auto) 1.4 % (0-4) 02/08/22 08:58 Baso % (Auto) 0.6 % (0-2) 02/08/22 08:58 Lymph # (Auto) 1.7 X10*3/uL (1.2-4.9) 02/08/22 08:58 [place] # (Auto) 0.8 X10*3/uL (0.1-1.2) 02/08/22 08:58 Eos # (Auto) 0.1 X10*3/uL (0.0-0.4) 02/08/22 08:58 Baso # (Auto) 0.0 X10*3/uL (0.0-0.2) 02/08/22 08:58 Abs Immat Gran (auto) 0.05 X10*3/uL (0.00-0.03) H 02/08/22 08:58 Absolute Neuts (auto) 4.2 x10*3/uL (2.0-8.3) 02/08/22 08:58 Absolute Nucleated RBC 0.000 X10*3/uL (0.0-0.012) 02/08/22 08:58 Nucleated RBC % (auto) 0.0 /100WBC (0.0-0.2) 02/08/22 08:58 Iron 65 mcg/dL (45-160) 02/08/22 08:58 TIBC 213 mcg/dL (228-428) L 02/08/22 08:58 % Saturation 31 % (15-50) 02/08/22 08:58 Unsat Iron Binding 148 ug/dL 02/08/22 08:58 Vitamin B12 366 pg/mL (200-900) 02/08/22 08:58 Folate 5.4 ng/mL (> or = 4.0) 02/08/22 08:58 Assessment and Plan Patient Active problem list reviewed?: Yes (1) Left leg DVT Problem details: 10/09/2021 left popliteal vein and calf DVT. Status: Chronic Assessment and plan: 1. This is a pleasant 76-year-old male with chronic kidney disease was diagnosed with left lower extremity DVT in October 2021. This was spontaneous with no triggering factors and 1st episode of thrombosis. He is on anticoagulation with warfarin. He requires steroid injection in his back because of chronic arthritis and spine issues. Repeat Doppler of left lower extremity in February 2022 was negative. Have asked him to resume anticoagulation with warfarin after spinal injection. 2. Chronic normocytic anemia related to underlying kidney disease. He is not on ANNA therapy. Normal iron levels, vitamin B12 and folate. He is a candidate for ANNA therapy, prior authorization for this will be obtained. Follow-up in 1 month. - Time Spent With Patient Time Spent with Patient (in minutes): 10
--- NOTE | 2022-02-23 15:28 | HO.HEMONCPA ---
NO PA REQUIRED FOR [facility] code [id number]. REF#[id number]. SARA - MELISSA P. 02/23/22 AT 15:27pm. [employer]CR[facility] IS NOT ON THE INS. PLAN FORMULARY
--- NOTE | 2022-03-18 09:06 | PM.HEMONCPN ---
Medical Summary - Medical Summary Date of Service: 03/18/22 Chief complaint: Follow-up Medical Summary: Diagnosis: Left lower extremity DVT 2020 Chronic kidney disease and recent diagnosis of left lower extremity DVT sent for Hematology consultation. Patient says that he had no symptoms such as swelling or significant pain in has left leg but he had a cramp like sensation in his calf. He was sent for Doppler ultrasound which revealed an acute clot in the popliteal vein. He has chronic back pain and underlying rheumatological issues. He goes for steroid injection in his spine on and off. He is on warfarin and not on DOACs because of chronic kidney disease. 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 He is doing okay but not happy that he may need hemodialysis soon. He is reluctant to even have the fistula placed. He is again off blood thinner for his steroid injection. He does not like to be on warfarin as it requires frequent INR monitoring. He would like to stop taking it. He denies any exertional chest pain, shortness of breath, leg pain or swelling. He does get tired when he walks and his back bothers him. Review of Systems - Constitutional Reports as per HPI, Reports no additional constitutional complaints [facility] Medical History: Medical History (Last Reviewed 03/18/22 @ 09:03 by Alfredito Mix RN) Chronic back pain Chronic kidney disease DVT (deep venous thrombosis) HTN (hypertension) Polymyalgia rheumatica Surgical History: Surgical History (Last Reviewed 03/18/22 @ 09:03 by Alfredito Mix RN) H/O left hemicolectomy No pertinent past surgical history Social History: Social History (Last Reviewed 03/18/22 @ 09:03 by Alfredito Mix RN) Living [facility] History[facility] Tobacco History: Patient Tobacco Use Status: Current everyday Tobacco Tobacco use type: Cigarette Years Smoked: 54 e-Cigarette/Vaping Use: Never Used Second Hand Smoke Exposure: Yes Occupation Assessmet: service: No Current occupational status: employed Current occupation: Security Oncology Screenings - ECOG Performance Status ECOG Performance Status: 2 Home Medications and Allergies Home Medications Medication Instructions Recorded Confirmed Type glipizide 5 mg tablet, extended 5 mg PO DAILY tab 10/09/21 03/18/22 History release 24 hr nifedipine 60 mg tablet,extended 60 mg PO DAILY 10/13/21 03/18/22 History release 24 hr cholecalciferol (vitamin D3) 50 50 mcg PO DAILY 11/12/21 03/18/22 History mcg (2,000 unit) capsule torsemide 20 mg tablet 20 mg PO DAILY 03/15/22 03/18/22 History Allergies Allergy/AdvReac Type Severity Reaction Status Date / Time No Known Allergies Allergy Verified 03/18/22 09:03 [No Known Allergies*] Exam Vital signs: Vital Signs Temp 97.8 F 02/08/22 08:25 Pulse 54 02/08/22 08:25 BP 171/76 H 02/08/22 08:25 Pulse Ox 98 02/08/22 08:25 Weight 85.8 kg BMI result Body Mass Index 25.6 - Constitutional Present: no acute distress, average body habitus - Routine HEENT Exam Head: Present: normal inspection - Routine Neck Exam Absent: lymphadenopathy - Routine Respiratory Exam Present: CTAB. Absent: accessory muscle use - Routine Cardiovascular Exam Cardiovascular: Present: RRR, S1, S2 - Routine Extremities Exam Present: normal inspection - Routine Skin Exam Present: intact. Absent: cyanosis - Routine Neurological Exam Present: alert, oriented X3 Data - Labs CBC & Chem 7: 03/18/22 09:11 Assessment and Plan Patient Active problem list reviewed?: Yes (1) Left leg DVT Problem details: 10/09/2021 left popliteal vein and calf DVT. Status: Chronic Assessment and plan: 1. This is a pleasant 76-year-old male with chronic kidney disease was diagnosed with left lower extremity DVT in October 2021. This was spontaneous with no triggering factors and 1st episode of thrombosis. He is on anticoagulation with warfarin. He requires steroid injection in his back because of chronic arthritis and spine issues. Repeat Doppler of left lower extremity in February 2022 was negative. Have asked him to resume anticoagulation with warfarin after spinal injection. We had a long discussion today about pros and cons of long-term anticoagulation. He is at risk of recurrent DVT if he comes off anticoagulation based on his decreased mobility, underlying kidney disease as well as recent spontaneous clot. He would like to monitor himself closely for any recurrence, he would prefer to take a baby aspirin for now. He understands the risk. 2. Chronic normocytic anemia related to underlying kidney disease. He is not on ANNA therapy. Normal iron levels, vitamin B12 and folate. He is a candidate for ANNA therapy. He would like to follow-up with his soda maker regarding this. Iron studies from today are pending. Follow-up in 3 months. - Time Spent With Patient Time Spent with Patient (in minutes): 15
[2022-03-18 09:14] LABS: MANUAL DIFF FLAG NO
[2022-03-18 09:20] VITALS: BP 128/61; PULSE 51; RESP 17; TEMP 36; O2SAT 97; BMI 25.6
[2022-03-18 09:21] LABS: Basophils Percent Auto 0.5 % (0-2); Eosinophils Absolute Auto 0.1 X10*3/uL (0.0-0.4); Eosinophils Percent Auto 1.6 % (0-4); Hematocrit 26.2 % (42.0-52.0); Hemoglobin 8.8 g/dl (14.0-18.0); Imm Gran Abs Auto 0.04 X10*3/uL (0.00-0.03); Imm Gran Pct Auto 0.6 % (0.0-0.4); Lymphocytes Absolute Auto 1.3 X10*3/uL (1.2-4.9); Mean Corpuscular HGB Conc 33.6 g/dl (31.0-36.0); Mean Corpuscular Hemoglobin 31.4 pg (27.0-33.0); Mean Corpuscular Volume 93.6 fL (80.0-98.0); Mean Platelet Volume 9.5 fL (9.4-12.4); Monocytes Absolute Auto 0.6 X10*3/uL (0.1-1.2); Monocytes Percent Auto 10.1 % (2-11); Neutrophils Absolute Auto 4.2 x10*3/uL (2.0-8.3); Neutrophils Percent Auto 66.2 % (45-73); Platelet Count 181 X10*3/uL (160-400); Red Cell Distribution Width 13.2 % (11.0-16.0); White Blood Count 6.3 X10*3/uL (4.8-10.8)
--- NOTE | 2022-03-18 09:38 | MHC.HEMONC ---
Pt and his were in for Hem f/u, VSS, labs drawn/reviewed, clinical summary updated. Pt was very irritable and said he didn't want to take any more medications, while his said he is very stubborn and that they often fight about his resistance to medical care. Pt has been told by nephrology that he'll need a new port for dialysis. Nurse said pt needed his CBC checked as he has been anemic. Nurse educated pt and about the effects of kidney disease on anemia, that his Hgb was 8.9 a month ago and Dr. Stovall is considering giving Epoetin to stimulate RBC growth. Nurse informed them that his insurance was checked and he does not require PA for this med. Pt's explained that pt was on Warfarin, had INRs checked by Dr. Miranda, PCP, but his warfarin has been on hold since last week as he has another steroid injection into his lumbar spine scheduled for next Tue, 03/24, was told to resume it afterward, however, pt is very frustrated w/ the freq INR checks, wants to know if he could be switched to alternative anticoagulant, like ASA. Nurse updated Dr. Stovall and she was in to meet w/ pt. Nurse notified provider that pt's Hgb is stable today at 8.8, Dr. Stovall said not to give Retacrit right now if pt's warfarin is on hold. Pt received d/c packet w/ f/u booked in 3 months.
[2022-03-18 09:57] LABS: Iron 59 mcg/dL (45-160); Percent Iron Saturation 25 % (15-50); Total Iron Binding Capacity 233 mcg/dL (228-428); Unsaturated Iron Binding 174 ug/dL
--- NOTE | 2022-04-09 14:31 | MHC.HEMONC ---
Patient to start Procrit 40,000 units every 2 weeks. Given to Deepa for prior authorization. Awaiting to book. Spoke to over phone with update.
--- NOTE | 2022-04-12 12:02 | HO.HEMONCPA ---
PA FOR PROCRIT WITHDRAWN. PROCRIT IS A NON PREFERRED DRUG ON INSURANCE PLAN.
--- NOTE | 2022-04-12 12:03 | HO.HEMONCPA ---
RETACRIT- [id number] Injection, epoetin césar-epbx NO PA REQUIRED. CALL REF. #[id number]. DANIELE 04/12/22 at 11:46am
--- NOTE | 2022-04-14 15:05 | MHC.HEMONC ---
Nurse took t/c from Bonny at the lab, reporting critical high Creatinine of 4.37. Nurse informed Dr. Stovall.
[2022-04-15 11:05] VITALS: BP 198/86; PULSE 52; RESP 18; TEMP 36.2; O2SAT 100; BMI 25.2
--- NOTE | 2022-04-15 11:33 | MHC.HEMONC ---
Pt here for Redicrit injection. H & H 8.9/26.3/Platelets 153. Redicrit injection given SC left arm-tolerated well. BP as noted-pt and state they will contact Dr Miranda to report elevated blood pressure. Follow up appointment scheduled for 2 weeks. Calendar given.
--- NOTE | 2022-04-15 15:33 | MHC.HEMONC ---
Pt here for Retacrit injection. Labs drawn earlier reviewed. H & H 8.9/26.3/platelets 153. Retacrit SC given in left arm-tolerated well. Next appointment scheduled in 2 weeks. Calendar given with appointment
--- NOTE | 2022-04-15 16:30 | MHC.HEMONC ---
Labs faxed to Dr Naveed Almanzar @[phone]
--- NOTE | 2022-04-30 08:51 | MHC.HEMONC ---
Every 2 weeks retracrit held today for hgb=10.7. Spoke with his Jenna, he is feeling well. Next visit scheduled for 05/14/2022, he is aware.
[2022-05-14 11:02] VITALS: BMI 24.3
[2022-05-14 11:03] VITALS: BP 126/60; PULSE 55; RESP 18; TEMP 36.2; O2SAT 95
--- NOTE | 2022-05-14 15:46 | MHC.HEMONC ---
Pt was in for [id number] Retacrit injection, VSS, labs performed the previous day in [place], hgb was 10.1. Dr. Stovall provided written order for Retacrit, which nurse faxed to pharmacy. Nurse admin Retacrit 20,000 units SC to pt's TU, which he tolerated well. 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 Nurse gave pt d/c packet and booked pt's next Retacrit injection for 05/28/22.
--- NOTE | 2022-05-27 10:55 | HE.ONCSEC ---
CALLED PATIENT FOR ROUTINE REMINDER , PATIENT DID NOT ANSWER I LEFT A DETAILED VOICEMAIL REGARDING PATIENT APPT DATE & TIME
--- NOTE | 2022-05-27 14:16 | HE.ONCSEC ---
PATIENT CALLED BACK TO CONFIRM INJECTION APPT .
--- NOTE | 2022-05-27 16:00 | MHC.HEMONC ---
Called and spoke to Prasanna's Jenna. Hgb=11 so retacrit injection not necessary. Next appointment booked for June 10 at 10:30.
[2022-06-10 10:40] VITALS: BP 126/56; PULSE 54; RESP 17; TEMP 36.1; O2SAT 97; BMI 23.1
--- NOTE | 2022-06-10 13:29 | MHC.HEMONC ---
Pt here for Retacrit injection. HGB 10.6 on 06/09/22. Reported to Dr Stovall. Pt to receive dose today and change to q 3 weeks. Next appointment * for injection and f/u.
--- NOTE | 2022-06-29 13:06 | MHC.HEMONC ---
Per Dr Stovall, pt to only have cbc done for q2 week retacrit. Does not want cmp done
--- NOTE | 2022-06-29 15:42 | MHC.HEMONC ---
Nurse checked results of pt's outpatient lab draw, in advance of his [id number] Retacrit injection sched for tomorrow, 06/30. Pt's Hgb resulted at 11.0, Dr. Stovall was updated, said no indication for Retacrit tomorrow, rescedule injection for 3 weeks from now. This nurse called pt at home, spoke w/ his Ree, said pt can reschedule his next injection for 07/21/22. Nurse also resched his f/u appt w/ Dr. Stovall for 07/21/22 at 13:20. Nurse entered in CBC order for 07/20/22, so pt can have his lab draw the day prior at [facility] outpatient clinic in [place]. Nurse asked pt's to call if his condition changes.
--- NOTE | 2022-07-16 14:36 | HO.HEMONCPA ---
PA for retro-procrit (J0885)- I reached out to [facility] ([employer]- [phone]) to request a Retro PA for DOS 05/14/22(J0885). The rep Jaimee said that no PA is required for J0885 if the drug has been given in the past year. The reference number for the call is [id number] at 2:30pm EST on 07/16/22.
[2022-07-21 13:46] VITALS: BP 164/70; PULSE 52; RESP 14; TEMP 36.6; O2SAT 99; BMI 24.0
--- NOTE | 2022-07-21 14:33 | MHC.HEMONCMA ---
patient seen todayfor follow up anemia, VSS, need auth for new medication, followup TBD.
--- NOTE | 2022-07-21 15:33 | HO.HEMONCPA ---
NO PA REQUIRED FOR PROCRIT(J0885) IF CLIENT/PT HAS RECEIVED PROCRIT IN THE LAST 365 DAYS. CALL REF ID #[id number]. ON 07/21/22 at 12:19pm PST
--- NOTE | 2022-07-21 15:36 | MHC.HEMONC ---
Per pharmacist Dragan, there is a national shortage of retacrit, and there is none available to pt his injection today. Dr Stovall is aware, and PA for procrit will be attempted.
--- NOTE | 2022-07-21 15:56 | P.PNHO-ONC_ITS ---
Medical Summary - Medical Summary Date of Service: 07/21/22 Chief complaint: Follow-up Medical Summary: Diagnosis: Left lower extremity DVT 2020 Chronic kidney disease and recent diagnosis of left lower extremity DVT sent for Hematology consultation. Patient says that he had no symptoms such as swelling or significant pain in has left leg but he had a cramp like sensation in his calf. He was sent for Doppler ultrasound which revealed an acute clot in the popliteal vein. He has chronic back pain and underlying rheumatological issues. He goes for steroid injection in his spine on and off. He is on warfarin and not on DOACs because of chronic kidney disease. 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 He is doing well and reports no acute complaints today. He is accompanied by his .. He denies any exertional chest pain, shortness of breath, leg pain or swelling. He has been receiving ANNA therapy every 2-3 weeks, his energy level has improved. Review of Systems - Constitutional Denies fatigue, Denies fever(s), Denies night sweats, Denies poor appetite - Cardiovascular Reports no additional cardiovascular complaints - Respiratory Reports no additional respiratory complaints - Gastrointestinal Reports no additional gastrointestinal complaints [facility] Medical History: Medical History (Last Reviewed 07/21/22 @ 13:50 by Laurence Fine) Chronic back pain Chronic kidney disease DVT (deep venous thrombosis) HTN (hypertension) Polymyalgia rheumatica Surgical History: Surgical History (Last Reviewed 07/21/22 @ 13:50 by Laurence Fine) H/O left hemicolectomy Social History: Social History (Last Updated 07/21/22 @ 13:52 by Laurence Fine) Living Situation History: Household Members: Spouse Housing: Condominium Alcohol History Details: 1. How often do you have a drink containing alcohol?: a. Never Tobacco History: Patient Tobacco Use Status: Current everyday Tobacco Tobacco use type: Cigarette Years Smoked: 54 e-Cigarette/Vaping Use: Never Used Second Hand Smoke Exposure: Yes Substance Use History: Use of substances other than those prescribed or required for medical reasons : No Domestic Abuse History: Have you been hit, kicked, punched, or otherwise hurt by someone within the past year? If so, by whom?: No Do you feel safe in your current relationship?: Yes Homicidal Assessment: Do you have thoughts of harming others: None Do you have a plan to hurt others: No Plan Do you have the means to hurt others: No Nutrition Assessment: Recently lost weight without trying: No Occupation Assessmet: service: No Current occupational status: retired Current occupational exposures/hazards: No Oncology Screenings - ECOG Performance Status ECOG Performance Status: 1 Home Medications and Allergies Home Medications Medication Instructions Recorded Confirmed Type glipizide 5 mg tablet, extended 5 mg PO DAILY 10/09/21 07/21/22 History release 24 hr nifedipine 60 mg tablet,extended 60 mg PO DAILY 10/13/21 07/21/22 History release 24 hr cholecalciferol (vitamin D3) 50 50 mcg PO DAILY 11/12/21 07/21/22 History mcg (2,000 unit) capsule torsemide 20 mg tablet 20 mg PO DAILY 03/15/22 07/21/22 History Allergies Allergy/AdvReac Type Severity Reaction Status Date / Time No Known Allergies Allergy Verified 07/16/22 08:48 [No Known Allergies*] Exam Vital signs: Vital Signs Temp 97.8 F 07/21/22 13:46 Pulse 52 07/21/22 13:46 Resp 14 07/21/22 13:46 BP 164/70 H 07/21/22 13:46 Pulse Ox 99 07/21/22 13:46 O2 Del Method 07/21/22 13:46 Intake & Output 07/20/22 07/21/22 07/21/22 18:59 06:59 18:59 Other: Weight 80.3 kg [place] Weight in Grams 27614 Weight 80.3 kg BMI result Body Mass Index 24.0 - Constitutional Present: no acute distress, average body habitus - Routine HEENT Exam Head: Present: normal inspection - Routine Neck Exam Absent: lymphadenopathy - Routine Respiratory Exam Present: CTAB. Absent: accessory muscle use - Routine Cardiovascular Exam Cardiovascular: Present: RRR, S1, S2 - Routine Extremities Exam Present: normal inspection - Routine Skin Exam Present: intact. Absent: cyanosis - Routine Neurological Exam Present: alert, oriented X3 Data - Labs CBC & Chem 7: 03/18/22 09:11 Labs: Laboratory Tests 07/20/22 09:05 WBC 6.8 RBC 3.44 L Hgb 10.5 L Hct 30.8 L Plt Count 174 Assessment and Plan Patient Active problem list reviewed?: Yes (1) Left leg DVT Problem details: 10/09/2021 left popliteal vein and calf DVT. Status: Chronic Assessment and plan: 1. This is a pleasant 77-year-old male with chronic kidney disease was diagnosed with left lower extremity DVT in October 2021. This was spontaneous with no triggering factors and 1st episode of thrombosis. He was on anticoagulation with warfarin. Repeat Doppler of left lower extremity in February 2022 was negative. Patient did not want to continue with warfarin. He is taking aspirin since March 2022. 2. Chronic normocytic anemia related to underlying kidney disease. Normal iron levels, vitamin B12 and folate. He started ANNA therapy since April 2022. He is feeling better. Follow-up in 6 months. - Time Spent With Patient Time Spent with Patient (in minutes): 15
--- NOTE | 2022-07-21 16:14 | MHC.HEMONC ---
PA obtained for procrit. Pt scheduled to come in 07/22
[2022-07-22 11:08] VITALS: BP 151/65; PULSE 52; RESP 19; TEMP 36.1; O2SAT 100
[2022-07-22] MEDS: Epoetin Alfa 40,000 UNIT/ML VIAL 40000 UNIT SUBCUT (11:10)
--- NOTE | 2022-07-22 11:13 | MHC.HEMONC ---
Pt here for monthly procrit injection. Labs drawn yesterday. H & H 10.5/30.8/PLATELETS 174 Procrit 40,000 units SC given in left arm-tolerated well (no PA required per Deepa Gil) Next appointment scheduled for 1 month-calendar given
--- NOTE | 2022-08-17 11:39 | MHC.HEMONC ---
Nurse heard VM from Ashley Clement, pt's spouse, saying he would be in for his Retacrit this Fri, 08/20, and needs orders to have his labs drawn at his Dr.'s office. Nurse entered in CBC for 08/19, called pt, no answer, left VM explaining the plan, including CB #.
[2022-08-20 10:36] VITALS: BP 166/75; PULSE 55; TEMP 36.1; O2SAT 96
--- NOTE | 2022-08-20 10:54 | MHC.HEMONC ---
Monthly procrit given to right upper arm for hgb=10. Blood pressure high, he has not taken bp med yet today but will do that as soon as he gets home.
[2022-09-17] MEDS: Epoetin Alfa 40,000 UNIT/ML VIAL 40000 UNIT SUBCUT (11:20)
[2022-09-17 11:26] VITALS: BP 123/60; PULSE 51; TEMP 36.5; O2SAT 98
--- NOTE | 2022-09-17 11:27 | MHC.HEMONC ---
procrit [id number] given for hgb=10.2. Pt aware of next appt. Discharge packet given.
== END 2022-10-13 | disposition home or self-care (01) ==
LOC: HO.ONC 11:00
PROVIDERS: PCP Family Medicine; Visit Provider Internal Medicine
DX: N18.9 Chronic kidney disease, unspecified (principal); D63.1 Anemia in chronic kidney disease; Z86.718 Personal history of other venous thrombosis and embolism
CPT/HCPCS: 36415; 82607; 82746; 83540; 85025; 96372; 99204; 99213; 99214; J0885; Q5106